=== PATIENT | female | born 1950 | race Caucasian/White ===

== ENCOUNTER → 2017-03-01 13:12 | Outpatient (CLI) | payer MEDICARE, BC ==
[2014-03-01 12:05] VITALS: BMI 27.4
[~2017-03-01 13:12] MED LIST: ACETAMINOPHEN500 M1 PO; ASPIRIN325 MG PO; ATIVAN1 MG PO; CARAFATE1 G PO; GLUCOTROL XL 1010 MG PO; LAMICTAL100 MG PO; LAMICTAL200 MG PO; LAMICTAL25 MG PO; LEVOTHROID150 MCG PO; LEVSIN/ANASP0.125 MG PO; LINZESS145 MCG PO; LISINOPRIL10 MG PO; METAMUCIL PACKE1 PKT PO; MINERAL OIL25 ML PO; MIRALAX17 GM PO; OXYBUTYNIN CHLOR5 MG; PEPCID20 MG PO; PLAVIX75 MG PO; PRAVACHOL20 MG PO; PRILOSEC20 MG PO; PRINIVIL20 MG PO; SEROQUEL XR300 MG PO; SEROQUEL200 MG PO; SYNTHROID125 MCG PO; SYNTHROID150 MCG PO; SYNTHROID50 MCG PO; TOPAMAX100 MG PO; TOPAMAX50 MG PO; VITAMIN B-12250 MC3 SL; ZYPREXA10 MG PO; ZYPREXA5 MG PO
== END | disposition home or self-care (01) ==
LOC: D.MAMMO 11:30
DX: Z12.31 Encounter for screening mammogram for malignant neoplasm of breast (principal)

== ENCOUNTER → 2018-03-07 20:15 | Outpatient (CLI) | payer MEDICARE, BC ==
[2014-03-01 12:05] VITALS: BMI 27.4
== END | disposition home or self-care (01) ==
LOC: D.MAMMO 14:30
DX: Z12.31 Encounter for screening mammogram for malignant neoplasm of breast (principal)

== ENCOUNTER → 2018-04-06 09:02 | Outpatient (CLI) | payer MEDICARE, BC ==
[2014-03-01 12:05] VITALS: BMI 27.4
--- NOTE | ~2018-04-06 | ST ---
PATIENT:RAPHAEL DUENAS MEDICAL RECORD: [id number] SEX: F LOCATION:[facility] ORDER #: ADMISSION DATE: 04/06/18 AGE OF PATIENT: 67 REFERRING PHYSICIAN: INTERPRETING PHYSICIAN: EBEN LAMAR MD DATE OF SERVICE: 04/06/2018 PROCEDURE: Nuclear Stress Test. INDICATION: Chest pain, angina, coronary artery disease, shortness of breath, hypertension, hyperlipidemia. DESCRIPTION OF PROCEDURE: The patient was exercised on standard Lexiscan protocol with 32 mCi of sestamibi injected at peak stress, 10 mCi were used previously for rest images. FINDINGS: Gated SPECT reveals preserved ejection fraction at 74% with good wall motioning and thickening and brightening throughout all segments. SPECT imaging: Sestamibi was used as myocardial perfusion agent. There is reversibility anteriorly, this includes the basal, mid apical anterior segments extending into the lateral segments as well. The degree of reversibility is mild to moderate. The amount of myocardial involved is moderate. OVERALL IMPRESSION: 1. This a normal nuclear stress test, reversible ischemia anterolaterally. 2. Gated SPECT reveals preserved ejection fraction greater than 70%. In this patient with a past history of coronary artery disease, current scan does suggest the presence of recurrent hemodynamically significant disease. Would proceed with coronary angiography as followup study. TRANSINT:[id number] Voice Confirmation ID: [id number] DOCUMENT ID: [id number] EBEN LAMAR MD at 1108 CC: THAO THORNTON [id number] DICTATION DATE: 04/06/18 1216 SECURITY PATROL DRIVER: 04/07/18 0047 DEP CLI 04/06/18 [id number] [place] [address]
== END | disposition home or self-care (01) ==
LOC: D.HCCARDIO 09:00
DX: I20.9 Angina pectoris, unspecified (principal)

== ENCOUNTER 2018-04-17 08:21 | Outpatient (CLI) | payer MEDICARE, BC ==
[~2018-04-17] VITALS: Ht 167.6 cm; Wt 81.8 kg
--- NOTE | ~2018-04-17 | HEMODYNAMI ---
PATIENT:RAPHAEL DUENAS MEDICAL RECORD: [id number] : 48 LOCATION:[facility] ADMISSION DATE: 04/17/18 Generatedon:04/17/201810:47 Patient name: RAPHAEL DUENAS Patient #: [id number] SSN: : 1950 Date of study: 04/17/2018 Page: Of Hemodynamic Procedure Report Patient Data Patient Demographics Procedure consent was obtained First Name: RAPHAEL Gender: Female Last Name: HENRIQUE : 1950 Middle Initial: WILD Age: 67 year(s) Patient #: [id number] Race: Unknown Additional ID: [id number] Contact details [address]: [address] [place] [address] State: [place] City: [facility] Zip code: [address] Admission Admission Data Admission Date: 04/17/2018 Admission Time: 8:21 Procedure Procedure Types Cath Procedure Diagnostic Procedure LHC LHC w/Coronaries Procedure Description Procedure Date Procedure Date: 04/17/2018 Procedure Start Time: 10:37 Procedure End Time: 10:45 Procedure Staff Name Function Jesús Krishnan MD Performing Physician Quincy Man RN Department Of Natural Resources Officer Estefania Lujan RT Monitor Urszula Parks RN Nurse Karyn Evans RT Scrub Procedure Data Cath Procedure Fluoroscopy Diagnostic fluoroscopy Total fluoroscopy Time: 2.5 time: 2.5 min min Diagnostic fluoroscopy Total fluoroscopy dose: 478 dose: 478 mGy mGy Contrast Material Contrast Material Type Amount (ml) Isovue 300 62 Entry Location Entry Primary Successful Side Size Upsize Upsize Entry Closure Chaudhry ccessful Closure Location (Fr) 1 (Fr) 2 (Fr) Remarks Device Remarks Radial Right 6 Fr Mechanical artery Short Compression Estimated blood loss: 5 ml Diagnostic catheters Device Type Used For End Catheter Placement DIAGNOSTIC Acton 110cm 5 Multi-vessel Fr catheter ([id number]) Angiography DIAGNOSTIC AR MOD 5Fr Right Coronary Catheter ([id number]) Angiography Procedure Complications No complications Procedure Medications Medication Administration Route Dosage 0.9% NaCl I.V. 100 ml/hr Oxygen etCO2 Nasal cannula 2 l/min Lidocaine 2% added to field 20 Heparin Flush Bag added to field 2 bags (1000units/500ml NS) Radial Cocktail added to field 1 syringe (Verapomil 2mg/Nitro 400mcg/Heparin 1500units) Versed I.V. 2 mg Fentanyl I.V. 100 mcg Versed I.V. 2 mg Hemodynamics Rest Heart Rate: 66 (bpm) Pressure Samples Time Site Value (mmHg) Purpose Heart Use Rate(bpm) 10:39 LV 115/7,4 Snapshot 65 Snapshots Pre Cath Intra NCS Post Cath Vital Signs Time Heart Resp SPO2 etCO2 NIBP (mmHg) Rhythm Pain Sedation Rate (ipm) (%) (mmHg) Status Level (bpm) 10:19:38 68 18 100 15 155/84(116) NSR 0 (11) 10(A) , No pain 10:24:09 62 17 100 20 149/72(126) NSR 0 (11) 10(A) , No pain 10:28:31 66 24 100 14 145/70(118) NSR 0 (11) 10(A) , No pain 10:32:55 67 16 97 22.8 114/69(88) NSR 0 (11) 10(A) , No pain 10:37:15 76 15 96 23.3 133/62(81) NSR 0 (11) 10(A) , No pain 10:41:33 79 12 98 29.7 104/57(77) NSR 0 (11) 9(A) , No pain 10:45:49 84 15 99 21 99/61(83) NSR 0 (11) 10(A) , No pain Medications Time Medication Route Dose Verified Delivered Reason Notes E ffectiveness by by 10:18:27 0.9% NaCl I.V. 100 Jesús Urszula used for ml/hr Ariella Parks forestry conservation worker 10:18:34 Oxygen etCO2 2 l/min Jesús Gutierreza used for Nasal Ariella Parks procedure cannula RN 10:18:41 Lidocaine 2% added 20ml Jesús Espinosa for local to vial Ariella Krishnan MD anesthetic field 10:18:48 Heparin Flush added 2 bags Jesús Espinosa used for Bag to Ariella Krishnan MD procedure (1000units/500ml field NS) 10:30:18 Radial Cocktail added 1 Jesús Urszula used for (Verapomil to syringe Ariella Parks procedure 2mg/Nitro field RN 400mcg/Heparin 1500units) 10:34:28 Versed I.V. 2 mg Jesús Deanyla for Ariella Parks sedation RN 10:34:39 Fentanyl I.V. 100 mcg Jesús Gutierreza for Ariella Parks sedation RN 10:39:36 Versed I.V. 2 mg Jesús Deanyla for Ariella Parks sedation wash test checker Log Time Note 10:07:16 Time tracking: Regular hours (M-F 7:00 - 5:00) 10:07:20 Plan of Care:Hemodynamics will remain stable., Cardiac rhythm will remain stable., Comfort level will be maintained., Respiratory function will remain adequate., Patient/ family verbilizes understanding of procedure., Procedure tolerated without complication., Recovers from procedure without complications.. 10:10:40 Quincy Man RN sent for patient. Start room use. 10:14:18 Patient received from Pre/Post Procedure Room to CCL 1 Alert and oriented. Tansferred to table in Supine position. 10:14:20 Warm blankets applied, and lauren hugger turned on for patient comfort. 10:14:20 Correct patient and procedure confirmed by team. 10:14:21 Signed procedure consent form obtained from patient. 10:14:23 ECG and BP/O2 sat monitors applied to patient. 10:14:24 Full Disclosure recording started 10:18:17 Vital chart was started 10:18:27 0.9% NaCl 100 ml/hr I.V. was administered by Urszula Parks RN; used for procedure; 10:18:34 Oxygen 2 l/min etCO2 Nasal cannula was administered by Urszula Parks RN; used for procedure; 10:18:41 Lidocaine 2% 20ml vial added to field was administered by Jesús Krishnan MD; for local anesthetic; 10:18:48 Heparin Flush Bag (1000units/500ml NS) 2 bags added to field was administered by Jesús Krishnan MD; used for procedure; 10:20:31 Baseline sample Acquired. 10:20:46 Rhythm: sinus rhythm 10:30:18 Radial Cocktail (Verapomil 2mg/Nitro 400mcg/Heparin 1500units) 1 syringe added to field was administered by Urszula Parks RN; used for procedure; 10:31:39 H&P Date Dictated: 04/17/2018 Within 30 days and on chart., H&P Addendum completed by physician on day of procedure. (MUST COMPLETE FOR ALL OUTPATIENTS). 10:31:40 Pre-procedure instructions explained to patient. 10:31:42 Pre-op teaching completed and patient verbalized understanding. 10:31:45 Family in patients room. 10:31:55 Patient NPO since Midnight. 10:31:56 Is the patient allergic to Iodine/contrast media? No. 10:31:58 Was the patient premedicated? No 10:31:59 Is patient on blood thinner?No 10:32:00 Patient diabetic? No. 10:32:03 Previous problem with sedation/anesthesia? No ? 10:32:05 Snore? Yes 10:32:06 Sleep apnea? Yes 10:32:07 Deviated septum? No 10:32:08 Opens mouth fully? Yes 10:32:09 Sticks out tongue? Yes 10:32:19 Airway obstruction? No ? 10:32:23 Dentures? Yes out 10:32:28 Pre procedure: right dorsailis pedis pulse 2+ Normal; easily identifiable; not easily obliterated 10:32:30 Pre procedure: left dorsailis pedis pulse 2+ Normal; easily identifiable; not easily obliterated 10:32:33 Patient pain scale 0/10 ?. 10:32:41 IV patent on arrival in left forearm with 0.9% NaCl at KVO. 10:32:43 Lab results completed and on chart. 10:32:51 Right Radial & Right Groin area was prepped with chlora-prep and draped in sterile fashion 10:32:51 Alarms reviewed by R. N. 10:32:52 Sharps counted by scrub and verified by R.N. 10:32:53 Physician arrived 10:32:53 --------ALL STOP TIME OUT------ 10:32:53 Final Timeout: patient, procedure, and site verified with staff and physician. All members of the team are in agreement. 10:32:55 Right Radial & Right Groin site verified by team. 10:32:58 Physical assessment completed. ASA score P 2 - A patient with mild systemic disease as per Jesús Krishnan MD. 10:33:02 Sedation plan: IV Moderate Sedation Medication:Versed, Fentanyl 10:34:28 Versed 2 mg I.V. was administered by Urszula Parks RN; for sedation; 10:34:39 Fentanyl 100 mcg I.V. was administered by Urszula Parks RN; for sedation; 10:37:16 Use device set Radial Dx or PCI 10:37:18 ACIST Syringe (00672) opened to sterile field. 10:37:18 Medline Cath Pack ([id number]) opened to sterile field. 10:37:18 Bag Decanter (2002S) opened to sterile field. 10:37:19 DIAGNOSTIC WIRE .035 260cm J wire (812042) opened to sterile field. 10:37:19 ACIST Hand Control (26970) opened to sterile field. 10:37:19 ACIST Manifold (80118) opened to sterile field. 10:37:20 Tegaderm 4 x 4 (1626W) opened to sterile field. 10:37:20 MBrace Wrist Support ([id number]) opened to sterile field. 10:37:21 SHEATH 6FR Slender (60-0383) opened to sterile field. 10:37:27 Procedure started. 10:37:31 Local anesthetic to right radial artery with Lidocaine 2% by Jesús Krishnan MD.INITIAL ACCESS ONLY 10:37:40 A 6 Fr Short sheath was inserted into the Right Radial artery 10:38:35 A DIAGNOSTIC Acton 110cm 5 Fr catheter ([id number]) was advanced over the wire and used for Multi-vessel Angiography. 10:38:44 Zero performed for pressure channel P1 10:38:48 Zero performed for pressure channel P1 10:38:53 Zero performed for pressure channel P1 10:38:59 Zero performed for pressure channel P1 10:39:11 LV hemodynamics recorded. 10:39:12 LV gram done using LUCERO 10:39:26 EF : 60 % 10:39:34 LCA angiography performed. 10:39:36 Versed 2 mg I.V. was administered by Urszula Parks RN; for sedation; 10:39:36 Injector settings: Ml/sec: 3, Volume: 6, 10:41:54 Zero performed for pressure channel P1 10:42:09 A DIAGNOSTIC AR MOD 5Fr Catheter ([id number]) was advanced over the wire and used for Right Coronary Angiography. 10:42:53 RCA angiography performed. 10:42:56 Injector settings: Ml/sec: 3, Volume: 6, 10:43:08 Catheter removed. 10:43:40 Sheath removed intact; hemostasis achieved with Mechanical Compression to the Right Radial artery. 10:43:42 Procedure ended.(Physican Out) 10:44:06 Fluoroscopy time 02.50 minutes. 10:44:23 Fluoroscopy dose: 478 mGy 10:44:23 Flurop Dose total: 478 10:44:27 Contrast amount:Isovue 300 62ml. 10:44:28 Sharps counted by scrub and verified by R.N. 10:44:31 TR band inflated with 11cc of air. 10:44:36 Insertion/operative site no bleeding no hematoma. 10:44:41 Post right radial artery:stable 10:44:42 Post Procedure Pulses reassessed and unchanged 10:44:45 Post procedure rhythm: unchanged. 10:44:47 Estimated blood loss: 5 ml 10:44:58 TR BAND Large ([id number]) opened to sterile field. 10:45:05 Post procedure instruction explained to patient.Patient verbalizes understanding. 10:45:05 Patient needs reinforcement of post procedure teaching. 10:45:13 Procedure and supply charges have been captured, reviewed, submitted and are correct. 10:45:17 Procedure Complication : No complications 10:45:20 Vital chart was stopped 10:45:20 See physician's report for complete and final results. 10:45:23 Report given to Pre/Post Procedure Room. 10:45:25 Patient transfered to Pre/Post Procedure Room with Stretcher. 10:45:28 Procedure ended. 10:45:28 Full Disclosure recording stopped 10:45:38 End room use (Document Last) Device Usage Item Name Manufacture Quantity Catalog Hospital Part Current Minimal Lot# / Number Charge Number Stock Stock Serial# Code ACIST Acist 1 09130 894396 936008 370984 20 Syringe Cascade Prodrug (25488) Clowdy Inc Medline Medline 1 [id number] 880222 97495 203165 5 Cath Pack ([id number]) Bag Microtek 1 326697 11464 565795 5 Decanter Medical Inc. () DIAGNOSTIC [place] 1 480113 396654 036479 343113 30 WIRE .035 260cm J wire (177917) ACIST Hand Acist 1 71162 878519 894683 824773 5 Control Medical (24597) Systems Inc ACIST Acist 1 75792 276402 994341 563403 5 Manifold Medical (65215) Systems Inc Tegaderm 4 3M 1 1626W 801756 450830 121150 5 x 4 (1626W) MBrace Advanced 1 140-0250-00 568798 78360 959749 5 Wrist Vascular Support Dynamics ([id number]) SHEATH 6FR Terumo 1 [id number] 019826 053284 792594 5 Slender (80-1060) DIAGNOSTIC Terumo 1 40-3363 214561 139251 666505 5 Acton 110cm 5 Fr catheter (339850) DIAGNOSTIC Cardinal 1 [id number] 393844 249886 801128 15 AR MOD 5Fr Health Catheter (078314H) TR BAND Terumo 1 [id number] 402944 520817 351449 40 Large ([id number]) Signature Audit [place] Stage Time Signature Unsigned Intra-Procedure 04/17/2018 Estefania Lujan 10:47:06 AM RT(R) Signatures Monitor : Estefania Lujan RT Signature : Date : Time : [address] [place] [address]
--- NOTE | ~2018-04-17 | OP ---
PATIENT NAME: RAPHAEL DUENAS MEDICAL RECORD: [id number] :48 LOCATION:[facility] ADMISSION DATE: SURGEON: EBEN LAMAR MD DATE OF OPERATION: 04/17/2018 PROCEDURES: 1. Left heart catheterization. 2. Selective coronary angiography. 3. Left ventriculogram. INDICATION: Chest pain compatible with angina. PROCEDURE IN DETAIL: After informed consent was obtained and after a detailed description of risks, benefits as well as alternative therapies, the patient elected to proceed with angiogram and heart catheterization. The right radial area was prepped and draped in normal sterile fashion. Right radial artery was cannulated via modified Seldinger technique with placement of 5-Maldivian sheath. All catheters exchanged through this sheath. FINDINGS: The left ventriculogram was performed in standard 30-degree LUCERO view, reveals good cardiac wall motion throughout all segments. Overall ejection fraction estimated 60%. SELECTIVE CORONARY ANGIOGRAPHY: Left main, left anterior descending, left circumflex, right coronary artery are all smooth-walled vessels with no angiographic evidence of coronary artery disease. OVERALL IMPRESSION: 1. No angiographic evidence of coronary artery disease. 2. Normal left heart pressures. 3. Normal left ventricular systolic function. Chest pain is noncardiac in etiology. No further cardiac workup needs to be ascertained. TRANSINT:[id number] Voice Confirmation ID: [id number] DOCUMENT ID: [id number] EBEN LAMAR MD at 1324 CC: [id number] DICTATION DATE: 04/17/18 1045 SOUND ASSISTANT: 04/17/18 1202 DEP CLI 04/17/18 [place] [address]
[2018-04-17] MEDS ORDERED: BUPROPION HCL75 MG PO (08:48)
[2018-04-17] MEDS ORDERED: ALENDRONATE SOD70 MG PO (08:48)
[2018-04-17 08:49] VITALS: BP 154/68; Ht 167.6 cm; Wt 81.8 kg
[2018-04-17] MEDS ORDERED: FLUTICASONE PRO16 GM NASAL (08:49)
[2018-04-17] MEDS ORDERED: HALDOL5 MG PO (08:50)
[2018-04-17] MEDS ORDERED: LISINOPRIL10 MG PO (08:51)
[2018-04-17] MEDS ORDERED: TRAZODONE HCL100 MG PO (08:53)
[2018-04-17 09:09] LABS: BASOPHILS 0.2 % (0-2); EOSINOPHILS 1.6 % (0-7); HEMATOCRIT 39.9 % (36.0-48.0); HEMOGLOBIN 13.3 g/dL (12-16); IMMATURE GRANULOCYTES 0.2 % (0-5); LYMPHOCYTES 34.8 % (15-50); MCH 30.4 pg (26.0-34.0); MCHC 33.3 g/dL (31.0-37.0); MCV 91.1 fL (80.0-100.0); MEAN PLATELET VOLUME 10.8 fL (7.4-10.4); MONOCYTES 10.5 % (2-11); NEUTROPHILS 52.7 % (40-80); PLATELET COUNT 219 10x3/uL (130-400); RBC 4.38 10x6/uL (4.00-5.40); RDW 14.7 % (11.5-14.5); WBC 6.3 10x3/uL (4.8-10.8)
[2018-04-17 09:27] LABS: CALC OSMOLALITY 283 mosm/kg (275-300); CALCIUM 9.4 mg/dL (8.5-10.1); CARBON DIOXIDE 23.3 mmol/L (21.0-32.0); CHLORIDE - SERUM 107 mmol/L (98-107); CREATININE - SERUM 0.8 mg/dL (0.6-1.3); GLUCOSE 90 mg/dL (74-106); POTASSIUM - SERUM 3.3 mmol/L (3.5-5.1); SODIUM 143 mmol/L (136-145); UREA NITROGEN 9 mg/dL (7-18); eGFR NON AFRICAN AMERICAN 75 mL/min (90-120)
== END 2018-04-17 12:45 | disposition home or self-care (01) ==
LOC: D.CATH 08:21
PROVIDERS: Internal Medicine Interventional Cardiology
DX: R07.89 Other chest pain (principal); Z01.812 Encounter for preprocedural laboratory examination

== ENCOUNTER 2018-04-19 12:26 | Inpatient (IN) | payer MEDICARE, BC ==
[~2018-04-19] VITALS: Ht 167.6 cm; Wt 81.8 kg
[~2018-04-19 12:26] MED LIST changes: +ALENDRONATE SOD70 MG PO; +BUPROPION HCL75 MG PO; +FLUTICASONE PRO16 GM NASAL; +HALDOL5 MG PO; +TRAZODONE HCL100 MG PO
--- NOTE | 2018-04-19 12:49 | NUR ---
PT REPORTS THAT SHE IS BIPOLAR AND THE HOLIDAYS TRIGGERS THESE FEELINGS
--- NOTE | 2018-04-19 13:01 | NUR ---
PT UP OUT OF BED WALKING THE CATALAN AT TIMES. PT THRASHING ABOUT ON THE STRETCHER WITH SON AT BEDSIDE. PT ATTEMPTING TO GET OUT OF BED MULTIPLE TIMES AND DTR IS HERE NOW CONSOLING PT
--- NOTE | 2018-04-19 13:33 | NUR ---
PT RESTING QUIETLY AT THIS TIME. FAMILY AT BEDSIDE
[2018-04-19 13:43] LABS: BASOPHILS 0.2 % (0-2); EOSINOPHILS 0.7 % (0-7); HEMATOCRIT 39.3 % (36.0-48.0); IMMATURE GRANULOCYTES 0.2 % (0-5); LYMPHOCYTES 33.8 % (15-50); MCHC 33.1 g/dL (31.0-37.0); MCV 90.8 fL (80.0-100.0); MEAN PLATELET VOLUME 10.7 fL (7.4-10.4); MONOCYTES 7.7 % (2-11); NEUTROPHILS 57.4 % (40-80); PLATELET COUNT 216 10x3/uL (130-400); RBC 4.33 10x6/uL (4.00-5.40); RDW 14.6 % (11.5-14.5)
--- NOTE | 2018-04-19 13:47 | NUR ---
PT RESTING QUIETLY AT THIS TIME. FAMILY AT BEDSIDE
--- NOTE | 2018-04-19 13:48 | NUR ---
[facility] AND WAS TAKNE OFF OF HALDOL APPROX 1 MONTH AGO. FAMILY REPORTS THAT PT IS NOT SLEEPING OR EATING. FAMILY REPORTS THAT SHE HAD BEEN DOING WELL FOR THE PAST 2 YEARS.
--- NOTE | 2018-04-19 13:52 | NUR ---
LAB CALLED AND PT HAS A LACTIC ACID OF 2.8
[2018-04-19 13:55] LABS: ALBUMIN 3.8 g/dL (3.4-5.0); ALKALINE PHOSPHATASE 62 U/L (46-116); ALT (SGPT) 21 U/L (10-68); BILIRUBIN - TOTAL 0.37 mg/dL (0.2-1.3); CALC OSMOLALITY 277 mosm/kg (275-300); CALCIUM 9.3 mg/dL (8.5-10.1); CARBON DIOXIDE 20.9 mmol/L (21.0-32.0); CHLORIDE - SERUM 104 mmol/L (98-107); CREATINE KINASE 76 UL (21-215); CREATININE - SERUM 0.9 mg/dL (0.6-1.3); GLUCOSE 105 mg/dL (74-106); LIPASE 205 U/L (73-393); PROTEIN - SERUM 7.3 g/dL (6.4-8.2); SODIUM 140 mmol/L (136-145); THYROID STIMULATING HORMONE 7.02 uIU/mL (0.36-3.74); TROPONIN-I < 0.017 ng/mL (0.000-0.060); UREA NITROGEN 11 mg/dL (7-18); eGFR NON AFRICAN AMERICAN 66 mL/min (90-120)
[2018-04-19 13:59] LABS: POTASSIUM - SERUM 2.9 mmol/L (3.5-5.1)
[2018-04-19 14:01] LABS: APPEARANCE CLEAR (CLEAR); BILIRUBIN NEGATIVE (NEGATIVE); COLOR YELLOW (YELLOW); GLUCOSE NEGATIVE (NEGATIVE); KETONE NEGATIVE (NEGATIVE); NITRITE NEGATIVE (NEGATIVE); PH 7.5 (5.0-6.0); PROTEIN NEGATIVE (NEGATIVE); UROBILINOGEN NORMAL (NORMAL)
--- NOTE | 2018-04-19 14:02 | NUR ---
PTS POTASSIUM IS 2.9
[2018-04-19 14:10] LABS: UDS - AMPHET NEGATIVE QUAL (NEGATIVE); UDS - BARB NEGATIVE QUAL (NEGATIVE); UDS - BENZO POSITIVE QUAL (NEGATIVE); UDS - COCAINE NEGATIVE QUAL (NEGATIVE); UDS - OPIATE NEGATIVE QUAL (NEGATIVE); UDS - PCP NEGATIVE QUAL (NEGATIVE); UDS - THC NEGATIVE QUAL (NEGATIVE)
--- NOTE | 2018-04-19 14:31 | NUR ---
AT APPROX 1315 PT GOT OUT OF BED AND WAS DOWN THE HALLWAY TRYING TO LEAVE THE DEPARTMENT. WITH ASSISTANCE OF 2 PEOPLE PT PLACED BACK ON THE STRETCHER WITH NEW ORDERS GIVEN. PT NOT STRIKING AT STAFF BUT WAS TRYING TO SIT IN THE FLOOR AND NOT COOPERATING.
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
--- NOTE | 2018-04-19 15:38 | NUR ---
PT HAS BEEN ACCEPTED IN RETIREMENT
[2018-04-19 16:23] VITALS: BP 153/90; BMI 29.1
[2018-04-19 16:28] LABS: CHOL - HDL RATIO 2.1 ratio (2.3-4.1); LDL-HDL RATIO 0.9 ratio (1.5-3.5); THYROID STIMULATING HORMONE 7.12 uIU/mL (0.36-3.74)
[2018-04-19] MEDS ORDERED: TOPAMAX200 MG PO (17:29)
[2018-04-19] MEDS ORDERED: ATIVAN0.5 MG PO (17:30)
[2018-04-19 20:00] VITALS: BP 133/98
--- NOTE | 2018-04-20 02:20 | NUR ---
B) Patient is alert and oriented to person and place, calm and cooperative, no behaviors noted this shift, I) Administered scheduled medications as ordered R) Mediation compliant, sleeping now quietly in her bed, P) Continue plan of care.
[2018-04-20 08:19] LABS: FOLATE (FOLIC ACID) - SERUM 5.9 ng/mL (>3.0)
--- NOTE | 2018-04-20 09:10 | NUR ---
B) The patient is awake and alert, she did tell the other nurse that she is feeling itchy. She told me she is having a bipolar episode. She does not look anxious. She says she is feeling anxious. She ambulates independently. I) Provide her ativan 0.5 mg PO. Provide prescribed meds. R) The patient is compliant with meds. She is sitting away from most of the other patients. P) Continue POC.
[2018-04-20 09:27] VITALS: BMI 29.0
[2018-04-20 16:25] VITALS: Ht 167.6 cm; Wt 81.8 kg
[2018-04-20 19:52] VITALS: BP 136/70
--- NOTE | 2018-04-21 02:59 | NUR ---
B) Patient is alert and orineted to person, place and time, calm and cooperative, I) Administered scheduled medications as ordered, monitored for safety, assisted with needs and wants, R) Mediation coampliant, pleasant and friendly toward sataff, P) Continue plan of care.
--- NOTE | 2018-04-21 08:21 | NUR ---
B) The patient is calm and compliant, her mood is depressed, but she is reactive at times. She is oriented x 3. She ambulates independently. At this time Silviano called to the administrative assistant front desk and stated this patient put herself in the floor and she rolled all around and crawled to room 1136, she says this is a "Bipolar episode". I) Will provide her an IM Ativan 0.5 mg and Haldol 2 mg. R) Will monitor behavior and let Dr. Murillo be aware. P) Continue POC.
--- NOTE | 2018-04-21 08:32 | NUR ---
The patient stopped screaming, will hold off on the prn Ativan and Haldol. Will monitor her behavior.
--- NOTE | 2018-04-21 08:46 | PSY ---
PATIENT NAME:RAPHAEL DUENAS MEDICAL RECORD: [id number] : 48 LOCATION:[facility] ADMISSION DATE: 04/19/18 ACCOUNT: [id number] PSYCHIATRIC EVALUATION DATE OF EVALUATION: 04/20/18 IDENTIFYING DATA: The patient is 67 years old and she is admitted to the hospital on a voluntary basis secondary to agitation. CHIEF COMPLAINT: "They changed my medicine." HISTORY OF PRESENT ILLNESS: The patient has an established diagnosis of bipolar disorder. She was brought to the Emergency Room by her family because of erratic behavior. The patient's family reports increased emotional lability and agitation. She becomes quite active, she will begin screaming uncontrollably or she will be seen riding back and forth in her chair. She says that she is going to kill someone if not restrained. The patient denies this and says she has just been anxious about the holidays. The patient does freely admit that she feels she is about to lose control of herself. She indicates she has an increase in goal-directed activities, rapid intrusive thoughts and inability to sleep and feels highly agitated. She relates this to being taken off her Haldol by her outpatient psychiatrist. PAST MEDICAL HISTORY: Significant for diabetes, hypothyroidism, hypertension, gastroesophageal reflux disease, and a hysterectomy. PAST PSYCHIATRIC HISTORY: Significant for multiple hospitalizations dating back several decades. She has a long established diagnosis of bipolar disorder. FAMILY HISTORY: Noncontributory. ALLERGIES: AMOXICILLIN. CURRENT MEDICATIONS: Include Glucotrol, Prilosec, Fosamax, Wellbutrin, lisinopril, trazodone, Ditropan, Lamictal, Pravachol, Synthroid, Topamax, and Ativan. SOCIAL HISTORY: The patient is . She has 2 sons and a daughter. One of her sons is a 48-year-old, disabled from a stroke and lives with them and requires constant care from both the and . Apparently, he is so debilitated from the stroke, they actually have to feed this man. She is a former cigarette smoker and has never used recreational drugs. MENTAL STATUS EXAMINATION: The patient is awake, alert and oriented to person, place and somewhat to time and situation. Her mood is anxious. Her affect is constricted. Thought processes are disorganized. Memory, concentration, and abstraction abilities are at least moderately impaired. She denies any intent to harm herself or others. She denies psychotic symptoms. ASSETS: Supportive family members. LIABILITIES: Limited insight. DIAGNOSTIC IMPRESSION: AXIS I: Bipolar disorder, manic. AXIS II: None. AXIS III: Diabetes, hypertension, and hypothyroidism. AXIS IV: Moderate. AXIS V: Global assessment of functioning is 40. PLAN: At this time, the patient is admitted to the hospital secondary to agitated and threatening behavior associated with a chronic mental illness. She will be started on antipsychotic and mood stabilizing medications. Her long-term prognosis is guarded. TRANSINT:[id number] Voice Confirmation ID: [id number] DOCUMENT ID: [id number] ANTWAN ARZATE MD at 0846 CC: [id number] DICTATION DATE: 04/20/18 1350 LAND ACQUISITION MANAGER: 04/20/18 1452 ADM IN [facility] [address] [place] [address]
--- NOTE | 2018-04-21 09:00 | NUR ---
This nurse sat by the patient and spoke to her about getting her medications and that she needed to try to calm down as she will be receiving her medications soon. She is anxious and getting herself worked up, her bp and heart rate is elevated because she is worked up.
[2018-04-21 09:51] VITALS: BP 172/92
[2018-04-21 10:10] VITALS: BP 172/92
--- NOTE | 2018-04-21 10:30 | NUR ---
The patient again began screaming and hollering. Saying "Please don't make me go through this" over and over. Staff allowing her to self calm.
[2018-04-21 19:00] VITALS: BP 160/86
--- NOTE | 2018-04-22 04:14 | NUR ---
B) patient is alert and oriented to person and place, calm and cooperative this shift I) Administered scheduled mediations as ordered, monitored for safety R) mediation compliant, no behaviors noted this shift P) Continue plan of care.
[2018-04-22 07:00] VITALS: BP 154/96
--- NOTE | 2018-04-22 08:00 | NUR ---
B) pt is alert and oriented to person and place. pt is calm and cooperative with assessment. I) provide prescribed meds R) med compliant P) cpoc
--- NOTE | 2018-04-22 11:30 | PN ---
PATIENT:RAPHAEL DUENAS MEDICAL RECORD: [id number] LOCATION:[facility] ADMISSION DATE: 04/19/18 PROGRESS NOTE DATE OF SERVICE: 04/21/2018 SUBJECTIVE: The patient's case was discussed with staff. She has no new complaint. OBJECTIVE: The patient was behaving quite bizarrely this morning. She was crawling around on the floor and making nonsensical statements. She remembers doing this when asked about it. She is calling it an "episode." She is currently reporting that she feels better. She has only had one dose of Haldol that was discontinued, so I am not particularly concerned about this, but I am going to continue current medications and we will treat her with a low dose of Klonopin at bedtime. TRANSINT:[id number] Voice Confirmation ID: [id number] DOCUMENT ID: [id number] ANTWAN ARZATE MD at 1130 CC: [id number] DICTATION DATE: 04/21/18 1014 LIFT MANAGER: 04/21/18 1216 ADM IN [facility] [address] [id number]
[2018-04-22 20:12] VITALS: BP 160/94
--- NOTE | 2018-04-22 22:17 | NUR ---
PATIENT IS QUIET AND SOMEWHAT GAURDED, NOT VERY TRUSTING OF OTHERS, GETS ANXIOUS EASILY. TAKES MEDS. NO ADVERSE REACTION NOTED. WILL FOLLOW POC
[2018-04-23 07:00] VITALS: BP 129/84
--- NOTE | 2018-04-23 07:30 | NUR ---
B) PT IS ALERT AND ORIENTED. PT IS GUARDED AT TIMES. PT REPORTS ITCHY IS SIGN OF BIPOLAR EPISODE. REALITY ORIENTED NEEDED. PT BECOMES ANXIOUS EASILY. CALM AND COOPERATIVW WITH ASSESSMENT. I) PROVIDE PRESCRIBED MEDS R) MED COMPLIANT P) CPOC
--- NOTE | 2018-04-23 09:41 | PN ---
PATIENT:RAPHAEL DUENAS MEDICAL RECORD: [id number] LOCATION:[facility] ADMISSION DATE: 04/19/18 PROGRESS NOTE DATE OF SERVICE: 04/22/2018 SUBJECTIVE: The patient's case was discussed with staff. She has no new complaint. OBJECTIVE: The patient denies intent to harm herself or others. She is tolerating her medications well. She did have an episode of bizarre behavior where she said she was starting to itch and then briefly lost control of her behavior. She now says that she is calmer, but she is in agreement with trying a low dose of Depakote to see if that helps with some of her mood lability. TRANSINT:[id number] Voice Confirmation ID: [id number] DOCUMENT ID: [id number] ANTWAN ARZATE MD at 0941 CC: [id number] DICTATION DATE: 04/22/18 1147 SUPERVISOR BONDING: 04/22/18 1552 ADM IN [id number] [place] [address]
--- NOTE | 2018-04-23 13:12 | NUR ---
Nutrition follow-up: Diet: ADA PO intake 50-75% of meals Labs reviewed +BM RDN following.
--- NOTE | 2018-04-23 21:31 | NUR ---
PATIENT IS QUIET AND KEEPS TO HERSELF, SHE IS NEEDY AND ATTENTION SEEKING AT TIMES. COMPLIANT WITH MEDS. NO ADVERSE REACTION NOTED. WILL FOLLOW POC
[2018-04-23 21:59] VITALS: BP 140/70
--- NOTE | 2018-04-24 09:43 | PN ---
PATIENT:RAPHAEL DUENAS MEDICAL RECORD: [id number] LOCATION:[facility] ADMISSION DATE: 04/19/18 PROGRESS NOTE DATE OF SERVICE: 04/23/2018 SUBJECTIVE: The patient's case was discussed with staff. She has no new complaint. OBJECTIVE: The patient is in good behavioral control with limited insight about her condition. She tolerates her medicines well. ASSESSMENT: No change in diagnoses. PLAN: Brief supportive and educational interventions were made. I anticipate the patient could be transitioned out of the hospital soon. TRANSINT:[id number] Voice Confirmation ID: [id number] DOCUMENT ID: [id number] ANTWAN ARZATE MD at 0943 CC: [id number] DICTATION DATE: 04/23/18 1038 AGRICULTURAL PRODUCE WASHER: 04/23/18 1105 ADM IN [address] [place] [address]
--- NOTE | 2018-04-24 10:00 | NUR ---
RECEIVED PATIENT IN DINING ROOM FOR B'FAST, ALERT, CALM, COOPERATIVE. NO CRAWLING ON THE FLOOR NOTED THUS FAR THIS SHIFT. MEDS ADMIN PER ORDERS WITH COMPLETE MED COMPLIANCE NOTED. COOPERATIVE WITH GROUP ACTIVITY AND STAFF REQUESTS. CONT POC INCLUDING MEDICATIONS AND GROUP THERAPY.
[2018-04-24 21:00] VITALS: BP 142/80
--- NOTE | 2018-04-24 22:59 | NUR ---
B) Patient is alert and oriented to person, place and time, calm and cooperative I) Administered scheduled medications as ordered R) Mediation compliant, pleasant and friendly toward staff, P) Continue plan of care.
--- NOTE | 2018-04-25 09:30 | NUR ---
RECEIVED PATIENT IN DINING ROOM FOR B'FAST, ALERT, CALM, COOPERATIVE, NO ADVERSE BEHAVIORS NOTED. MEDS ADMIN PER ORDERS WITH COMPLETE MED COMPLIANCE NOTED. NO DIFFICULTY SWALLOWING MEDS WHOLE. COOPERATIVE WITH GROUP ACTIVITIES AND STAFF REQUESTS. CONT POC INCLUDING MEDS AND GROUP THERAPY DIRECTED.
--- NOTE | 2018-04-25 15:07 | PN ---
PATIENT:RAPHAEL DUENAS MEDICAL RECORD: [id number] LOCATION:[facility] ADMISSION DATE: 04/19/18 PROGRESS NOTE DATE OF SERVICE: 04/24/2018 SUBJECTIVE: The patient's case was discussed with staff. She has no new complaint. OBJECTIVE: The patient is in good behavioral control with limited insight about her condition. She is tolerating her medicines well. She has had no further outbursts today. ASSESSMENT: No change in diagnoses. PLAN: I am going to check a Depakote level and we will anticipate that Leisa can be transitioned out of the hospital soon if this level of improvement continues. TRANSINT:[id number] Voice Confirmation ID: [id number] DOCUMENT ID: [id number] ANTWAN ARZATE MD at 1507 CC: [id number] DICTATION DATE: 04/24/18 1005 OCCUPATIONAL HEALTH RN: 04/24/18 1021 ADM IN [facility] [address] [place] [address]
[2018-04-25 20:23] VITALS: BP 124/70
--- NOTE | 2018-04-26 02:54 | NUR ---
B) Patient is alert and oriented to person, place and time, calm and cooperative. I) Administered scheduled medications as ordered, R) mediation compliant, pleasant and friendly P) Continue plan of care.
--- NOTE | 2018-04-26 10:00 | NUR ---
RECEIVED PATIENT IN DINING ROOM FOR B'FAST, ALERT, CALM, COOPERATIVE, APPETITE GOOD, FEEDS SELF WITHOUT DIFFICULTY. NO ADVERSE BEHAVIORS AT THIS TIME. MEDS ADMIN PER ORDERS WITH COMPLETE MED COMPLIANCE NOTED. NO S/S ADVERSE REACTION TO MEDS. COOPERATIVE DURING GROUP THERAPY. CONT POC INCLUDING MEDS AND GROUP THERAPY DIRECTED.
[2018-04-26 10:19] VITALS: BP 146/75
--- NOTE | 2018-04-26 14:21 | PN ---
PATIENT:RAPHAEL DUENAS MEDICAL RECORD: [id number] LOCATION:[facility] ADMISSION DATE: 04/19/18 PROGRESS NOTE DATE OF SERVICE: 04/25/2018 SUBJECTIVE: The patient's case was discussed with staff. She has no new complaint. OBJECTIVE: The patient is in good behavioral control with limited insight about her condition. She is tolerating her medicines well. ASSESSMENT: No change in diagnoses. PLAN: The patient will be maintained on current medications, which I have reviewed. I think her condition has improved and she is likely to be transitioned out of the hospital tomorrow or perhaps the next day. TRANSINT:[id number] Voice Confirmation ID: [id number] DOCUMENT ID: [id number] ANTWAN ARZATE MD at 1421 CC: [id number] DICTATION DATE: 04/25/18 1544 INDEPENDENT INSURANCE ADJUSTER: 04/25/18 1702 ADM IN [id number] [place] [address]
[2018-04-26 20:05] VITALS: BP 128/73
--- NOTE | 2018-04-26 21:07 | NUR ---
RECEIVED IN DAYROOM. SITTING IN A CHAIR WITH PEERS AT HER SIDE. CALM AND COOPERATIVE WITH CARE AND ASSESSMENT. NO SIGNS OF AGGRESSION. REDIRECT AND REORIENT NEEDED. CONTINUES TO SIT QUIETLY. CONTINUE PLAN OF CARE
[2018-04-27 08:47] VITALS: BP 161/85
--- NOTE | 2018-04-27 11:03 | NUR ---
B) The patient is awake, alert, orieted x3, she is pleasant. She says she is feeling better. She ambulates independently. I) Provide prescribed meds. R) The patient is compliant with meds and unit milieu. This am she has not shown herself to have any abnormal behavior. P) Continue POC.
--- NOTE | 2018-04-27 15:29 | PN ---
PATIENT:RAPHAEL DUENAS MEDICAL RECORD: [id number] LOCATION:[facility] ADMISSION DATE: 04/19/18 PROGRESS NOTE DATE OF SERVICE: 04/26/2018 SUBJECTIVE: The patient's case was discussed with staff. She has no new complaint. OBJECTIVE: The patient denies intent to harm herself or others. She generally tolerates her medicines well. Eye contact is fair. ASSESSMENT: No change in diagnoses. PLAN: Current medicines and therapies have been reviewed and will be maintained. Long-term prognosis is guarded. TRANSINT:[id number] Voice Confirmation ID: [id number] DOCUMENT ID: [id number] ANTWAN ARZATE MD at 1529 CC: [id number] DICTATION DATE: 04/26/18 1449 WAREHOUSE CHECKER: 04/26/18 1458 ADM IN [facility] [address] [place] [address]
[2018-04-27 19:46] VITALS: BP 119/70
--- NOTE | 2018-04-27 23:40 | NUR ---
RECEIVED IN PATIENT ROOM. RESTING IN BED WITH EYES OPEN. CALM AND COOPERATIVE WITH CARE AND ASSESSMENT. EXPRESSED HER HAPPINESS ABOUT DISCHARGING TOMORROW. REDIRECT AND REORIENT NEEDED. RESTING IN BED WITH EYES CLOSED AT THIS TIME. CONTINUE PLAN OF CARE.
[2018-04-28 08:00] VITALS: BP 126/68
--- NOTE | 2018-04-28 10:26 | NUR ---
B) The patient is awake and alert this am, she is pleased to know she is going home today. Her family will pick her up. She ambulates well, she has not shown any bizarre behavioes today, she is not S.I. or H. I., She will continue her same medications she was on while inpatient. I) Provide d/c instructions. R) The patient is compliant with medications and unit milieu. Spoke to the patient's daughter Kavya and she says 1 pm today for a picker feeder is a good time for the family. The patient is packed and ready to go, will fax the MAR and D/C summary to Dr. Abreu. P) Continue D/C plan.
[2018-04-28] MEDS ORDERED: FEXOFENADINE H180 MG PO (11:18)
[2018-04-28] MEDS ORDERED: TRAZODONE HCL100 MG PO (11:19)
[2018-04-28] MEDS ORDERED: COREG CR10 MG PO (11:19)
[2018-04-28] MEDS ORDERED: ACETAMINOPHEN325 MG PO (11:20)
[2018-04-28] MEDS ORDERED: DEPAKOTE500 MG PO (11:20)
[2018-04-28] MEDS ORDERED: LINZESS145 MCG PO (11:21)
[2018-04-28] MEDS ORDERED: PROTONIX40 MG PO (11:21)
[2018-04-28] MEDS ORDERED: CARAFATE1 G PO (11:21)
[2018-04-28] MEDS ORDERED: SYNTHROID25 MCG PO (11:22)
[2018-04-28] MEDS ORDERED: SYNTHROID112 MCG PO (11:22)
[2018-04-28] MEDS ORDERED: BENADRYL 2% CRE30 GM TOPICAL (11:23)
[2018-04-28] MEDS ORDERED: Ditropan XL PO (11:23)
[2018-04-28] MEDS ORDERED: VITAMIN D31000 UNI2 PO (11:23)
[2018-04-28] MEDS ORDERED: VITAMIN B-121000 MCG PO (11:24)
--- NOTE | 2018-04-28 12:50 | NUR ---
The patient's son is here to take the patient home. The patient is assisted off of the unit by staff. Did go over medications with the patients son and did explain that she will need an appointment with Dr. Abreu within three weeks. Also let them know that Dr. Murillo does not follow a patient outside of the hospital.
--- NOTE | 2018-04-28 13:46 | PN ---
PATIENT:RAPHAEL DUENAS MEDICAL RECORD: [id number] LOCATION:[facility] ADMISSION DATE: 04/19/18 PROGRESS NOTE DATE OF SERVICE: 04/27/2018 SUBJECTIVE: The patient's case was discussed with staff. She has no new complaint. OBJECTIVE: The patient has a therapeutic Depakote level of 68. She is otherwise tolerating her medicines well. ASSESSMENT: No change in diagnoses. PLAN: Supportive and educational interventions were made. Long-term prognosis is guarded. This level of improvement continues, I anticipate she can be transitioned out of the hospital soon. TRANSINT:[id number] Voice Confirmation ID: [id number] DOCUMENT ID: [id number] ANTWAN ARZATE MD at 1346 CC: [id number] DICTATION DATE: 04/27/18 1554 FIBER OPTIC ASSEMBLER: 04/27/18 2355 DIS IN 04/28/18 [facility] [address] [place] [address]
--- NOTE | 2018-05-01 10:58 | DS ---
PATIENT:RAPHAEL DUENAS :48 MEDICAL RECORD: [id number] DISCHARGE SUMMARY ADMISSION DATE: 04/19/18 DISCHARGE DATE: 04/28/18 IDENTIFYING DATA: The patient is 67 years old and she was admitted to the hospital on a voluntary basis because of agitation. The patient has an established diagnosis of bipolar disorder and was brought to the Emergency Room because of erratic behavior. Apparently, she had been taking Haldol for a long time and her outpatient psychiatrist felt it was not appropriate and discontinued it. The decision was in retrospect a mistake at that time with the information she had. I do not think it was a bad decision. Given the long-term neurologic side effects of Haldol and the patient's longstanding stability while taking a therapeutic trial without it was not a bad decision and probably is something I would have done as well. At any rate, it was a mistake and the patient became disorganized, anxious, and out of control. She had become manic with an increase in goal-directed activities, rapid intrusive thoughts, and inability to sleep. She had an internal and subjective feeling of agitation. HOSPITAL COURSE: The patient was admitted to the hospital and evaluated from both a medical, psychological, and social standpoint. She was placed back on Haldol and it immediately helped with these symptoms. Interestingly, through the course of her treatment for this condition, she has never been tried on lithium or Depakote. I am not sure that is entirely correct, but that is the history the patient relates to me. I did start the patient on Depakote as a therapeutic trial and she did show improvement while taking it. She also had a therapeutic blood level prior to discharge. She was subsequently discharged to home. DISCHARGE DIAGNOSES: AXIS I: Bipolar disorder, manic. AXIS II: None. AXIS III: Diabetes, hypertension, and hypothyroidism. AXIS IV: Moderate. AXIS V: Global assessment of functioning is 45. PLAN: At the time of discharge, the patient was not acutely or directly dangerous to herself or others. She was tolerating her medications well. Her long-term prognosis is guarded. Brief supportive and educational interventions were provided. TRANSINT:[id number] Voice Confirmation ID: [id number] DOCUMENT ID: [id number] ANTWAN ARZATE MD at 1053 CC: [id number] DICTATION DATE: 04/30/18 1334 REGISTERED DENTAL HYGIENIST: 05/01/18 0620 DIS IN 04/28/18 [facility] [address] [id number]
== END 2018-04-28 12:53 | disposition home or self-care (01) | DRG 885 ==
LOC: D.ER 12:26 → D.PSYCH 15:45
PROVIDERS: Family Medicine; ADMIT Psychiatry & Neurology Psychiatry
DX: F31.10 Bipolar disorder, current episode manic without psychotic features, unspecified (principal); E11.9 Type 2 diabetes mellitus without complications; I10 Essential (primary) hypertension; E03.9 Hypothyroidism, unspecified; E78.5 Hyperlipidemia, unspecified; K21.9 Gastro-esophageal reflux disease without esophagitis; J30.9 Allergic rhinitis, unspecified; E53.8 Deficiency of other specified B group vitamins; E55.9 Vitamin D deficiency, unspecified; M47.9 Spondylosis, unspecified; K59.00 Constipation, unspecified; N32.81 Overactive bladder

== ENCOUNTER 2018-05-18 19:18 | Inpatient (IN) | payer MEDICARE, BC ==
[~2018-05-18] VITALS: Ht 167.6 cm; Wt 81.8 kg
[~2018-05-18 19:18] MED LIST changes: +ACETAMINOPHEN325 MG PO; +ATIVAN0.5 MG PO; +BENADRYL 2% CRE30 GM TOPICAL; +COREG CR10 MG PO; +DEPAKOTE500 MG PO; +Ditropan XL PO; +FEXOFENADINE H180 MG PO; +PROTONIX40 MG PO; +SYNTHROID112 MCG PO; +SYNTHROID25 MCG PO; +TOPAMAX200 MG PO; +VITAMIN B-121000 MCG PO; +VITAMIN D31000 UNI2 PO
[2018-05-18 20:26] LABS: APPEARANCE CLEAR (CLEAR); BILIRUBIN NEGATIVE (NEGATIVE); COLOR YELLOW (YELLOW); GLUCOSE NEGATIVE (NEGATIVE); KETONE SMALL mg/dL (NEGATIVE); NITRITE NEGATIVE (NEGATIVE); PROTEIN NEGATIVE (NEGATIVE); UROBILINOGEN NORMAL (NORMAL)
--- NOTE | 2018-05-18 20:43 | NUR ---
CT CALLED AND AVISED THE PATIENT HAD A SEIZURE WHILE THEY WHERE GETTING READY TO SCAN HER. THEY REPORT PATIENT BEGAN VOMITING AND THEN STARTED HAVING A FULL BODY SEIZURE.
--- NOTE | 2018-05-18 20:46 | NUR ---
UPON ARRIVAL PT WAS SNORING RESP EFFORT, IV WAS STARTED AND ORDER FOR ATIVAN [address] LUCIANO
[2018-05-18 20:55] VITALS: BP 123/62
[2018-05-18 21:26] LABS: ALBUMIN 3.1 g/dL (3.4-5.0); ALKALINE PHOSPHATASE 56 U/L (46-116); ALT (SGPT) 44 U/L (10-68); BILIRUBIN - TOTAL 0.67 mg/dL (0.2-1.3); CALCIUM 7.1 mg/dL (8.5-10.1); CARBON DIOXIDE 15.5 mmol/L (21.0-32.0); CREATININE - SERUM 0.6 mg/dL (0.6-1.3); PROTEIN - SERUM 6.2 g/dL (6.4-8.2); UREA NITROGEN 6 mg/dL (7-18); VALPROIC ACID (DEPAKOTE) 34.6 ug/mL (50.0-100.0); eGFR NON AFRICAN AMERICAN > 90 mL/min (90-120)
[2018-05-18 21:27] LABS: CALC OSMOLALITY 213 mosm/kg (275-300); GLUCOSE 171 mg/dL (74-106)
[2018-05-18 21:29] LABS: CHLORIDE - SERUM 75 mmol/L (98-107); SODIUM 104 mmol/L (136-145)
[2018-05-18 21:34] LABS: BASOPHILS 0.1 % (0-2); EOSINOPHILS 0.1 % (0-7); HEMATOCRIT 34.8 % (36.0-48.0); HEMOGLOBIN 12.5 g/dL (12-16); IMMATURE GRANULOCYTES 0.7 % (0-5); LYMPHOCYTES 15.8 % (15-50); MCH 30.6 pg (26.0-34.0); MCHC 35.9 g/dL (31.0-37.0); MCV 85.1 fL (80.0-100.0); MEAN PLATELET VOLUME 11.5 fL (7.4-10.4); MONOCYTES 5.2 % (2-11); NEUTROPHILS 78.1 % (40-80); PLATELET COUNT 187 10x3/uL (130-400); RBC 4.09 10x6/uL (4.00-5.40); RDW 12.5 % (11.5-14.5); WBC 8.3 10x3/uL (4.8-10.8)
[2018-05-18 22:00] VITALS: BP 111/60
--- NOTE | 2018-05-18 22:28 | NUR ---
JOANN CARE PROVIDED, BED LINENS CHANGED, CLEAN GOWN AND BRIEF PUT ON PT.
[2018-05-18 23:00] VITALS: BP 125/64
--- NOTE | 2018-05-18 23:02 | NUR ---
PT RESTING EYES CLOSED, RR EVEN AND UNLABORED, VSS, WILL CONTINUE TO MONITOR.
[2018-05-19] VITALS (11 sets, daily range): BP systolic 92–152; BP diastolic 48–78; Ht 167.6 cm; Wt 81.8 kg
--- NOTE | 2018-05-19 00:05 | NUR ---
2100 ML OF CLEAR YELLOW URINE EMPTIED FROM F/C
--- NOTE | 2018-05-19 01:08 | NUR ---
1200 ML OF VERY CLEAR LIGHT COLORED URINE EMPTIED FROM MCCULLOUGH
--- NOTE | 2018-05-19 02:13 | NUR ---
1100 ML OF CLEAR, VERY LIGHT YELLOW URINE EMPTIED FROM PT'S MCCULLOUGH.
--- NOTE | 2018-05-19 03:30 | NUR ---
750 ML OF CLEAR, LIGHT YELLOW URINE EMPTIED FROM PT'S MCCULLOUGH.
--- NOTE | 2018-05-19 04:45 | NUR ---
ICU NURSE AT BEDSIDE COMPLETING PT'S ADMISSION ASSESSMENT.
[2018-05-19 04:51] LABS: CALCIUM 8.2 mg/dL (8.5-10.1); CHLORIDE - SERUM 90 mmol/L (98-107); CREATININE - SERUM 0.6 mg/dL (0.6-1.3); POTASSIUM - SERUM 3.9 mmol/L (3.5-5.1); SODIUM 122 mmol/L (136-145); eGFR NON AFRICAN AMERICAN > 90 mL/min (90-120)
[2018-05-19 04:54] LABS: CALC OSMOLALITY 242 mosm/kg (275-300); CARBON DIOXIDE 21.4 mmol/L (21.0-32.0); GLUCOSE 93 mg/dL (74-106); UREA NITROGEN 4 mg/dL (7-18)
--- NOTE | 2018-05-19 06:45 | NUR ---
3% SODIUM CHLORIDE STOPPED, WAITING ON PHARMACY TO SEND NEXT ORDERED FLUIDS.
[2018-05-19 07:31] LABS: BASOPHILS 0 % (0-2); EOSINOPHILS 0.1 % (0-7); HEMATOCRIT 38.1 % (36.0-48.0); HEMOGLOBIN 13.7 g/dL (12-16); IMMATURE GRANULOCYTES 0.5 % (0-5); LYMPHOCYTES 21.3 % (15-50); MCH 30.6 pg (26.0-34.0); MONOCYTES 12.4 % (2-11); NEUTROPHILS 65.7 % (40-80); PLATELET COUNT 219 10x3/uL (130-400); RBC 4.48 10x6/uL (4.00-5.40); RDW 12.6 % (11.5-14.5); WBC 9.4 10x3/uL (4.8-10.8)
[2018-05-19 08:19] LABS: CALC OSMOLALITY 248 mosm/kg (275-300); CALCIUM 8.1 mg/dL (8.5-10.1); CARBON DIOXIDE 17.5 mmol/L (21.0-32.0); CHLORIDE - SERUM 95 mmol/L (98-107); CREATININE - SERUM 0.6 mg/dL (0.6-1.3); GLUCOSE 84 mg/dL (74-106); POTASSIUM - SERUM 3.9 mmol/L (3.5-5.1); SODIUM 126 mmol/L (136-145); UREA NITROGEN 4 mg/dL (7-18); eGFR NON AFRICAN AMERICAN > 90 mL/min (90-120)
--- NOTE | 2018-05-19 08:31 | NUR ---
1500 ML URINE OUTPUT. SLEEPING, AWAKES EASILY. ORIENTED X 4. EXTRA BLANKETS GIVEN. NO NEEDS NOTED. UPDATED ON PLAN OF CARE AND DELAYS IN CARE. WILL CONTINUE TO MONITOR.
--- NOTE | 2018-05-19 08:57 | NUR ---
POC GLUCOSE 69. DIET TRAY GIVEN
--- NOTE | 2018-05-19 10:13 | NUR ---
POC GLUCOSE 106
--- NOTE | 2018-05-19 11:22 | NUR ---
POC GLUCOSE 91
--- NOTE | 2018-05-19 12:17 | NUR ---
FAMILY AT BEDSIDE. VERBAL PERMISSION RECEIVED FROM PATIENT TO DISCUSS CARE. PATIENT AND FAMILY UPDATED ON PLAN OF CARE AND DELAYS IN CARE. PATIENT GIVEN DIET TRAY, SHE IS UNABLE TO EAT REGULAR FOODS DUE TO MOUTH SORES AND NO DENTURES. FAMILY STATES SHE HAS NOT BEEN EATING NORMALLY FOR A FEW DAYS DUE TO THE HER MOUTH PAIN DIABETIC MECHANICAL SOFT DIET TRAY ORDERED.
--- NOTE | 2018-05-19 12:59 | NUR ---
URINE OUTPUT 1000 [address]
--- NOTE | 2018-05-19 13:30 | NUR ---
PATIENT AWAKE AND ALERT, ADJUSTED TO HOB. SHE ATE A SMALL AMOUNT OF FOOD. NO NEEDS NOTED. UPDATED ON PLAN OF CARE. WILL CONTINUE TO MONITOR.
[2018-05-19 13:41] LABS: CALC OSMOLALITY 260 mosm/kg (275-300); CARBON DIOXIDE 19.9 mmol/L (21.0-32.0); CHLORIDE - SERUM 97 mmol/L (98-107); CREATININE - SERUM 0.6 mg/dL (0.6-1.3); GLUCOSE 97 mg/dL (74-106); POTASSIUM - SERUM 3.9 mmol/L (3.5-5.1); SODIUM 131 mmol/L (136-145); eGFR NON AFRICAN AMERICAN > 90 mL/min (90-120)
[2018-05-19 13:43] LABS: UREA NITROGEN 6 mg/dL (7-18)
--- NOTE | 2018-05-19 13:52 | MORECARE ---
CASE MANAGEMENT DISCHARGE SUMMARY PATIENT: RAPHAEL DUENAS UNIT: [id number] ADM DATE: 05/18/18 AGE: 68 : 49 SEX: F ROOM/BED: D.E14 AUTHOR: RAO,DOC PHYSICIAN: REFERRING PHYSICIAN: JAZMYNE BRANCH MD DATE OF SERVICE: 05/19/18 Discharge Plan Patient Name: RAPHAEL DUENAS Facility: [facility]:[place] : 1950 Planned Disposition: Home Anticipated Discharge Date: 05/21/18 Discharge Date: Expected LOS: 3 Initial Reviewer: [email or web address] Initial Review Date: 05/18/2018 Generated: 05/19/18 2:52 pm DCP- Discharge Planning Updated by [id number]: Hilary Galindo on 05/19/18 12:[address] Patient Name: RAPHAEL DUENAS Admission Status: ER Accout number: [id number] Admission Date: 05-18-2018 : 1950 Admission Diagnosis: Attending: JAZMYNE BRANCH Current LOS: 1 Anticipated DC Date: 05-21-2018 Planned Disposition: Home Primary Insurance: MEDICARE A & B Discharge Planning Comments: CM met with patient to complete initial dc planning assessment. CM educated patient on the CM role and verbal consent given by patient to complete assessment. Patient lives at home with her and her son. At discharge patient plans to return home and feels this is a safe discharge. CM discussed availability of home health, rehab services, and medical equipment. Patient denied known discharge needs at this time. CM will continue to follow and will assist as needed with dc plans/needs. Web Mobile Designer: Hilary Galindo RN, [facility] DCPIA - Discharge Planning Initial Assessment Updated by [id number]: Hilary Galindo on 05/19/18 1:51 pm * Is the patient Alert and Oriented? Yes * How many steps to enter\exit or inside your home? Two * PCP Dr. Abreu * Pharmacy [facility] * Preadmission Environment Home with Family * ADLs Independent * Equipment Glucometer * List name and contact numbers for known caregivers / representatives who currently or will assist patient after discharge: Kavya De Souza - daughter [phone] or [phone] * Verbal permission to speak to the caregivers and representatives has been obtained from the patient. Yes * Community resources currently utilized None * Additional services required to return to the preadmission environment? No * Can the patient safely return to the preadmission environment? Yes * Has this patient been hospitalized within the prior 30 days at any hospital? No Patient Name: RAPHAEL DUENAS Page [id number] at 1352 All edits/amendments must be made on the electronic document DICTATION DATE: 05/19/181351 SHAKER PLATE OPERATOR: LIZETH 05/19/18 1352 RPT#: [id number] DC DATE: STATUS: ADM IN [facility] [address] [place] [address] END OF REPORT
--- NOTE | 2018-05-19 14:10 | NUR ---
CONTACTED PHARMACY FOR NASAL SPRAY THAT WASN'T RECEIVED.
--- NOTE | 2018-05-19 15:10 | NUR ---
PATIENT SLEEPING, AWAKES TO VERBAL STIMULI. NO NEEDS NOTED. UPDATED ON PLAN OF CARE AND DELAYS IN CARE. WILL CONTINUE TO MONITOR.
[2018-05-19 16:59] LABS: CALC OSMOLALITY 257 mosm/kg (275-300); CARBON DIOXIDE 21.4 mmol/L (21.0-32.0); CHLORIDE - SERUM 98 mmol/L (98-107); CREATININE - SERUM 0.7 mg/dL (0.6-1.3); POTASSIUM - SERUM 3.5 mmol/L (3.5-5.1); SODIUM 131 mmol/L (136-145); UREA NITROGEN 5 mg/dL (7-18); eGFR NON AFRICAN AMERICAN 88 mL/min (90-120)
[2018-05-19 17:02] LABS: GLUCOSE 58 mg/dL (74-106)
--- NOTE | 2018-05-19 17:15 | NUR ---
FSBS 44. NOTIFIED OF SAME. GIVEN HALF AMP OF D50 SLOW IVP. REQUESTED AND GIVNE 650MG TYLENOL PO FOR C/O HEADACHE. WILL MONITOR.
[2018-05-19 19:54] LABS: CALC OSMOLALITY 261 mosm/kg (275-300); CALCIUM 8.6 mg/dL (8.5-10.1); CARBON DIOXIDE 22.4 mmol/L (21.0-32.0); CHLORIDE - SERUM 100 mmol/L (98-107); CREATININE - SERUM 0.7 mg/dL (0.6-1.3); GLUCOSE 82 mg/dL (74-106); POTASSIUM - SERUM 3.3 mmol/L (3.5-5.1); SODIUM 133 mmol/L (136-145); UREA NITROGEN 5 mg/dL (7-18); eGFR NON AFRICAN AMERICAN 88 mL/min (90-120)
[2018-05-20] VITALS: BP 135/77
[2018-05-20 04:00] VITALS: BP 119/68
[2018-05-20 05:49] LABS: BASOPHILS 0.2 % (0-2); EOSINOPHILS 0.5 % (0-7); HEMATOCRIT 39.2 % (36.0-48.0); HEMOGLOBIN 13.6 g/dL (12-16); IMMATURE GRANULOCYTES 0.3 % (0-5); LYMPHOCYTES 39.9 % (15-50); MCH 30.6 pg (26.0-34.0); MCHC 34.7 g/dL (31.0-37.0); MEAN PLATELET VOLUME 11.4 fL (7.4-10.4); MONOCYTES 16.2 % (2-11); NEUTROPHILS 42.9 % (40-80); PLATELET COUNT 217 10x3/uL (130-400); RBC 4.45 10x6/uL (4.00-5.40); RDW 13.7 % (11.5-14.5)
[2018-05-20 06:04] LABS: CALC OSMOLALITY 267 mosm/kg (275-300); CALCIUM 8.5 mg/dL (8.5-10.1); CARBON DIOXIDE 22.3 mmol/L (21.0-32.0); CHLORIDE - SERUM 101 mmol/L (98-107); CREATININE - SERUM 0.6 mg/dL (0.6-1.3); GLUCOSE 76 mg/dL (74-106); POTASSIUM - SERUM 3.1 mmol/L (3.5-5.1); SODIUM 136 mmol/L (136-145); UREA NITROGEN 4 mg/dL (7-18); eGFR NON AFRICAN AMERICAN > 90 mL/min (90-120)
[2018-05-20 06:09] LABS: MCV 88.1 fL (80.0-100.0); WBC 6.4 10x3/uL (4.8-10.8)
--- NOTE | 2018-05-20 06:46 | NUR ---
PT IN BED IN LOW FOWLERS POSITION. ALERT AND ORIENTED X 4. RESPIRATIONS EVEN AND UNLABORED. RESPIRATIONS EVEN AND UNLABORED. NO VISUAL CUES OF DISTRESS NOTED. DENIES ANY OTHER NEEDS AT THIS TIME. BED LOW, SIDE RAILS UP X2 CALL LIGHT IN REACH. WILL CONTINUE TO MONITOR.
--- NOTE | 2018-05-20 08:33 | NUR ---
PT ALERT X 4. BREATH SOUNDS CLEAR BILAT. IV TO LEFT FOREARM, SALINE SELENA. MCCULLOUGH IN PLACE, URINE YELLOW AND CLEAR. PT REPORTING BAD HEADACHE RATED 8/10, SAYS SHE TAKES AISHA AT HOME TO HELP WITH ALLERGY HEADACHES. MEDICATED PER ORDERS WITH TYLENOL, WILL MONITOR. BREAKFAST IN ROOM. BED LOW, CALL LIGHT IN REACH. NO OTHER NEEDS AT THIS TIME.
[2018-05-20 08:40] LABS: CALC OSMOLALITY 268 mosm/kg (275-300); CALCIUM 8.6 mg/dL (8.5-10.1); CARBON DIOXIDE 23.6 mmol/L (21.0-32.0); CHLORIDE - SERUM 101 mmol/L (98-107); CREATININE - SERUM 0.5 mg/dL (0.6-1.3); GLUCOSE 90 mg/dL (74-106); POTASSIUM - SERUM 3.6 mmol/L (3.5-5.1); SODIUM 136 mmol/L (136-145); UREA NITROGEN 5 mg/dL (7-18); eGFR NON AFRICAN AMERICAN > 90 mL/min (90-120)
[2018-05-20 08:56] VITALS: BP 121/71
[2018-05-20 14:31] VITALS: BP 111/72
--- NOTE | 2018-05-20 16:27 | NUR ---
IV TO LEFT FOREARM AND LEFT AC DC'D, TIPS INTACT, PRESSURE DRESSING APPLIED. DISCHARGE PAPERWORK SIGNED, ALL QUESTIONS ANSWERED.
--- NOTE | 2018-05-21 13:04 | MORECARE ---
CASE MANAGEMENT DISCHARGE SUMMARY PATIENT: RAPHAEL DUENAS UNIT: [id number] ADM DATE: 05/18/18 AGE: 68 : 49 SEX: F ROOM/BED: D.2206 AUTHOR: ROA,DOC PHYSICIAN: REFERRING PHYSICIAN: JAZMYNE BRANCH MD DATE OF SERVICE: 05/21/18 Discharge Plan Patient Name: RAPHAEL DUENAS Facility: [facility]:[place] : 1950 Planned Disposition: Home Anticipated Discharge Date: 05/21/18 Discharge Date: 05/20/2018 Expected LOS: 3 Initial Reviewer: [email or web address] Initial Review Date: 05/18/2018 Generated: 05/21/18 2:03 pm DCP- Discharge Planning Updated by [email or web address]: Hilary Galindo on 05/19/18 12:[address] Patient Name: RAPHAEL DUENAS Admission Status: ER Accout number: [id number] Admission Date: 05-18-2018 : 1950 Admission Diagnosis: Attending: JAZMYNE BRANCH Current LOS: 1 Anticipated DC Date: 05-21-2018 Planned Disposition: Home Primary Insurance: MEDICARE A & B Discharge Planning Comments: CM met with patient to complete initial dc planning assessment. CM educated patient on the CM role and verbal consent given by patient to complete assessment. Patient lives at home with her and her son. At discharge patient plans to return home and feels this is a safe discharge. CM discussed availability of home health, rehab services, and medical equipment. Patient denied known discharge needs at this time. CM will continue to follow and will assist as needed with dc plans/needs. Street Worker: Hilary Galindo RN, [facility] DCPIA - Discharge Planning Initial Assessment Updated by [email or web address]: Hilary Galindo on 05/19/18 1:51 pm * Is the patient Alert and Oriented? Yes * How many steps to enter\exit or inside your home? Two * PCP Dr. Abreu * Pharmacy [facility] * Preadmission Environment Home with Family * ADLs Independent * Equipment Glucometer * List name and contact numbers for known caregivers / representatives who currently or will assist patient after discharge: Kavya De Souza - daughter [phone] or [phone] * Verbal permission to speak to the caregivers and representatives has been obtained from the patient. Yes * Community resources currently utilized None * Additional services required to return to the preadmission environment? No * Can the patient safely return to the preadmission environment? Yes * Has this patient been hospitalized within the prior 30 days at any hospital? No Last DP export: 05/19/18 12:52 p Patient Name: RAPHAEL DUENAS Page [phone] at 1304 All edits/amendments must be made on the electronic document DICTATION DATE: 05/21/18 1303 CHANNEL ROUGHER: LIZETH 05/21/18 1303 RPT#: [id number] DC DATE:05/20/18 STATUS: DIS IN [facility] [address] [place] [address] END OF REPORT
== END 2018-05-20 17:27 | disposition home or self-care (01) | DRG 640 ==
LOC: D.ER 19:18 → D.MS 22:22 → D.EDHOLD 22:22 → D.MS 05-19 16:13
PROVIDERS: Family Medicine; ADMIT Internal Medicine Nephrology
DX: E87.1 Hypo-osmolality and hyponatremia (principal); J69.0 Pneumonitis due to inhalation of food and vomit; G93.41 Metabolic encephalopathy; G40.89 Other seizures; E11.9 Type 2 diabetes mellitus without complications; I10 Essential (primary) hypertension; F31.9 Bipolar disorder, unspecified; G47.33 Obstructive sleep apnea (adult) (pediatric); K21.9 Gastro-esophageal reflux disease without esophagitis; K59.09 Other constipation; E78.5 Hyperlipidemia, unspecified; T50.2X5A Adverse effect of carbonic-anhydrase inhibitors, benzothiadiazides and other diuretics, initial encounter

== ENCOUNTER 2018-05-26 04:55 | Inpatient (IN) | payer MEDICARE, BC ==
[~2018-05-26] VITALS: Ht 167.6 cm; Wt 82.1 kg
[2018-05-26] VITALS (20 sets, daily range): BP systolic 19–144; BP diastolic 45–87; Ht 167.6 cm; Wt 82.1 kg
--- NOTE | 2018-05-26 05:20 | NUR ---
FAMILY AT BEDSIDE
[2018-05-26 05:56] LABS: BASOPHILS 0.1 % (0-2); EOSINOPHILS 0.3 % (0-7); HEMATOCRIT 33.6 % (36.0-48.0); HEMOGLOBIN 12.3 g/dL (12-16); IMMATURE GRANULOCYTES 0.9 % (0-5); LYMPHOCYTES 19.6 % (15-50); MCH 30.4 pg (26.0-34.0); MCHC 36.6 g/dL (31.0-37.0); MCV 83.2 fL (80.0-100.0); MEAN PLATELET VOLUME 10.3 fL (7.4-10.4); MONOCYTES 7.9 % (2-11); NEUTROPHILS 71.2 % (40-80); PLATELET COUNT 186 10x3/uL (130-400); RBC 4.04 10x6/uL (4.00-5.40); RDW 12.4 % (11.5-14.5); WBC 6.8 10x3/uL (4.8-10.8)
[2018-05-26 06:11] LABS: APTT 29.6 SECONDS (22.8-39.4); INR 1.06 (0.85-1.17); PROTIME 13.3 SECONDS (11.6-15.0)
[2018-05-26 06:13] LABS: D-DIMER-QUANTITATIVE 0.35 ug/mLFEU (0.20-0.54)
[2018-05-26 06:31] LABS: APPEARANCE CLEAR (CLEAR); BILIRUBIN NEGATIVE (NEGATIVE); COLOR STRAW (YELLOW); GLUCOSE NEGATIVE (NEGATIVE); KETONE SMALL mg/dL (NEGATIVE); NITRITE NEGATIVE (NEGATIVE); PH 7.5 (5.0-6.0); PROTEIN NEGATIVE (NEGATIVE); SPECIFIC GRAVITY 1.005 (1.005-1.020); UROBILINOGEN NORMAL (NORMAL)
[2018-05-26 06:33] LABS: ALKALINE PHOSPHATASE 53 U/L (46-116); ALT (SGPT) 47 U/L (10-68); BILIRUBIN - TOTAL 0.65 mg/dL (0.2-1.3); CALCIUM 7.6 mg/dL (8.5-10.1); CKMB 35.9 U/L (0.0-3.6); CREATININE - SERUM 0.5 mg/dL (0.6-1.3); GLUCOSE 94 mg/dL (74-106); LIPASE 106 U/L (73-393); MAGNESIUM - SERUM 1.3 mg/dL (1.8-2.4); PRO BNP 231 pg/mL (0-125); PROTEIN - SERUM 6.2 g/dL (6.4-8.2); THYROID STIMULATING HORMONE 1.11 uIU/mL (0.36-3.74); TROPONIN-I 0.021 ng/mL (0.000-0.060); UREA NITROGEN 5 mg/dL (7-18); eGFR NON AFRICAN AMERICAN > 90 mL/min (90-120)
[2018-05-26 06:37] LABS: CALC OSMOLALITY 220 mosm/kg (275-300); CREATINE KINASE 1121 UL (21-215)
[2018-05-26 06:40] LABS: CHLORIDE - SERUM 77 mmol/L (98-107); POTASSIUM - SERUM 2.7 mmol/L (3.5-5.1); SODIUM 110 mmol/L (136-145)
--- NOTE | 2018-05-26 07:06 | NUR ---
ATTEMPTED TO CALL REPORT TO ICU. NURSE TAKING PT IS UNAVABLE TO TAKE REPORT AT PRESENT
[2018-05-26 12:40] LABS: CALCIUM 7.6 mg/dL (8.5-10.1); CARBON DIOXIDE 22.3 mmol/L (21.0-32.0); CREATININE - SERUM 0.5 mg/dL (0.6-1.3); GLUCOSE 87 mg/dL (74-106); eGFR NON AFRICAN AMERICAN > 90 mL/min (90-120)
[2018-05-26 12:54] LABS: CALC OSMOLALITY 233 mosm/kg (275-300); UREA NITROGEN 3 mg/dL (7-18)
[2018-05-26 12:55] LABS: CHLORIDE - SERUM 85 mmol/L (98-107); POTASSIUM - SERUM 2.9 mmol/L (3.5-5.1)
[2018-05-26 12:58] LABS: SODIUM 118 mmol/L (136-145)
[2018-05-26 18:11] LABS: CALC OSMOLALITY 253 mosm/kg (275-300); CALCIUM 8.2 mg/dL (8.5-10.1); CARBON DIOXIDE 19.6 mmol/L (21.0-32.0); CHLORIDE - SERUM 96 mmol/L (98-107); CREATININE - SERUM 0.5 mg/dL (0.6-1.3); GLUCOSE 92 mg/dL (74-106); SODIUM 128 mmol/L (136-145); UREA NITROGEN 3 mg/dL (7-18); eGFR NON AFRICAN AMERICAN > 90 mL/min (90-120)
[2018-05-26 18:12] LABS: POTASSIUM - SERUM 3.7 mmol/L (3.5-5.1)
--- NOTE | 2018-05-26 19:40 | NUR ---
REPORT REC'D AND CARE ASSUMED, REC'D PT RESTING IN BED EYES CLOSED, ON ROOM AIR, EASILY AWAKENS, ORIENTED X 4 AT THIS TIME, PT COMPLAINS OF HEADACHE, LEFT FOREARM PIV WITH 3% NS INFUSING @ 30CC/HR, BP STABLE, CM-SR, MCCULLOUGH PATENT DRAINING CLEAR YELLOW URINE, PT MAEE, PPP, BED IN LOW POSITION, CALL LIGHT IN REACH.
--- NOTE | 2018-05-26 21:15 | NUR ---
EVENING MEDS GIVEN, PT SLEEPING WHEN NURSE NOT IN ROOM , TOOK PO MEDS WITHOUT DIFFICULTY, WILL MONITOR CLOSELY FOR CHANGES.
--- NOTE | 2018-05-26 23:15 | NUR ---
REASSESSMENT COMPLETE, PT ORIENTED TO PERSON, PLACE, AND TIME, DENIES HEADACHE WILL CONTINUE CURRENT PLAN OF CARE,
[2018-05-27] VITALS (14 sets, daily range): BP systolic 92–146; BP diastolic 55–74
--- NOTE | 2018-05-27 01:25 | NUR ---
FRONT END UI DEVELOPER NOTIFIED OF NEED FOR SECOND BAG OF 3% NS, STATED SHE WOULD CLARIFY ORDER FOR "X 2" WITH ED PHYSICIAN.
--- NOTE | 2018-05-27 01:50 | NUR ---
NEW ORDER REC'D FOR 3% NS TO BE DECREASED TO 15CC/HR.
--- NOTE | 2018-05-27 03:30 | NUR ---
REASSESSMENT COMPLETED, NO CHANGES FROM PREVIOUS ASSESSMENT, PT REMAINS ORIENTED X 4, VSS, PT DENIES PAIN OR NEEDS.
[2018-05-27 04:07] LABS: ALBUMIN 2.7 g/dL (3.4-5.0); ALKALINE PHOSPHATASE 48 U/L (46-116); BASOPHILS 0.2 % (0-2); BILIRUBIN - TOTAL 0.42 mg/dL (0.2-1.3); CHLORIDE - SERUM 102 mmol/L (98-107); CREATININE - SERUM 0.6 mg/dL (0.6-1.3); EOSINOPHILS 0.5 % (0-7); GLUCOSE 81 mg/dL (74-106); HEMATOCRIT 36.2 % (36.0-48.0); HEMOGLOBIN 12.6 g/dL (12-16); IMMATURE GRANULOCYTES 0.7 % (0-5); LYMPHOCYTES 34.2 % (15-50); MCH 30.3 pg (26.0-34.0); MCHC 34.8 g/dL (31.0-37.0); MEAN PLATELET VOLUME 10.4 fL (7.4-10.4); MONOCYTES 13.7 % (2-11); NEUTROPHILS 50.7 % (40-80); PHOSPHOROUS 2.2 mg/dL (2.5-4.9); PLATELET COUNT 195 10x3/uL (130-400); POTASSIUM - SERUM 3.3 mmol/L (3.5-5.1); PROTEIN - SERUM 5.8 g/dL (6.4-8.2); RBC 4.16 10x6/uL (4.00-5.40); RDW 13.4 % (11.5-14.5); SODIUM 133 mmol/L (136-145); WBC 6.1 10x3/uL (4.8-10.8); eGFR NON AFRICAN AMERICAN > 90 mL/min (90-120)
[2018-05-27 04:08] LABS: ALT (SGPT) 61 U/L (10-68); CALC OSMOLALITY 261 mosm/kg (275-300); UREA NITROGEN 4 mg/dL (7-18)
--- NOTE | 2018-05-27 05:00 | NUR ---
PT RESTING ON SIDE, EYES CLOSED RESP EVEN AND UNLABORED, NO DISTRESS NOTED, SR UP X 2, CALL LIGHT IN REACH, BED IN LOW POSITION.
--- NOTE | 2018-05-27 07:15 | NUR ---
REPORT RECIEVED, SHIFT ASSESSMENT COMPLETE, PT IS ALERT AND ORIENTED, ALL PPP, VSS, CALL LIGHT IN REACH
--- NOTE | 2018-05-27 09:20 | NUR ---
NO VISITORS AT THIS TIME, WILL CON'T TO MONITOR
--- NOTE | 2018-05-27 12:30 | NUR ---
DR. BRANCH AT BEDSIDE, UPDATE GIVEN, NEW ORDERS RECIEVED
--- NOTE | 2018-05-27 13:26 | NUR ---
FAMILY AT BEDSIDE, UPDATE GIVEN
--- NOTE | 2018-05-27 13:55 | NUR ---
REPORT CALLED TO SHARYN ON MED SURG
--- NOTE | 2018-05-27 19:59 | NUR ---
PATIENT RESTING IN BED AND DENIES NEEDS AT THIS TIME. NO S/S OF DISTRESS. BED IN LOWEST POSITION AND CALL LIGHT WITHIN REACH. ENCOURAGED THE PATIENT TO CALL IF SHE HAS NEEDS. WILL CONTINUE TO MONITOR.
--- NOTE | 2018-05-27 23:51 | NUR ---
CALLED FOR HEART MONITOR, NO MONITOR AVAILABLE AT THIS TIME. PATIENT ADDED TO WAIT LIST.
[2018-05-28 04:00] VITALS: BP 145/68
[2018-05-28 08:50] LABS: BASOPHILS 0.3 % (0-2); EOSINOPHILS 0.9 % (0-7); HEMATOCRIT 37.6 % (36.0-48.0); IMMATURE GRANULOCYTES 0.3 % (0-5); LYMPHOCYTES 30.3 % (15-50); MCH 30.4 pg (26.0-34.0); MCHC 34.6 g/dL (31.0-37.0); MCV 88.1 fL (80.0-100.0); MEAN PLATELET VOLUME 10.1 fL (7.4-10.4); MONOCYTES 15.4 % (2-11); NEUTROPHILS 52.8 % (40-80); PLATELET COUNT 199 10x3/uL (130-400); RBC 4.27 10x6/uL (4.00-5.40); WBC 5.9 10x3/uL (4.8-10.8)
[2018-05-28 08:53] VITALS: BP 160/71
[2018-05-28 08:58] LABS: CALC OSMOLALITY 268 mosm/kg (275-300); CALCIUM 8.3 mg/dL (8.5-10.1); CARBON DIOXIDE 21.5 mmol/L (21.0-32.0); CHLORIDE - SERUM 103 mmol/L (98-107); CREATININE - SERUM 0.6 mg/dL (0.6-1.3); GLUCOSE 97 mg/dL (74-106); SODIUM 136 mmol/L (136-145); UREA NITROGEN 3 mg/dL (7-18); eGFR NON AFRICAN AMERICAN > 90 mL/min (90-120)
--- NOTE | 2018-05-28 09:26 | NUR ---
PATIENT IN BED WITH NO COMPLAINTS AT THIS TIME. SITTING UP IN BED TALKING TO PARTS COUNTER SPECIALIST. NO COMPLAINTS OR SIGNS OF DISTRESS. CALL LIGHT WITHIN REACH.
[2018-05-28] MEDS ORDERED: THERMOTABS 1 GM1 GM PO (11:05)
[2018-05-28] MEDS ORDERED: K-DUR20 MEQ PO (11:06)
--- NOTE | 2018-05-28 12:10 | MORECARE ---
CASE MANAGEMENT DISCHARGE SUMMARY PATIENT: RAPHAEL DUENAS UNIT: [id number] ADM DATE: 05/26/18 AGE: 68 : 49 SEX: F ROOM/BED: D.2206 AUTHOR: KRISTA YEH PHYSICIAN: REFERRING PHYSICIAN: PRAVIN GARCIA DO DATE OF SERVICE: 05/28/18 Discharge Plan Patient Name: RAPHAEL DUENAS Facility: [facility]:[place] : 1950 Planned Disposition: Home Anticipated Discharge Date: Discharge Date: Expected LOS: Initial Reviewer: [email or web address] Initial Review Date: 05/26/2018 Generated: 05/28/18 1:10 pm Comments DCP- Discharge Planning Updated by [id number]: Rosario Regan on 05/28/18 11:[address] Patient Name: RAPHAEL DUENAS Admission Status: ER Accout number: [id number] Admission Date: 05-26-2018 : 1950 Admission Diagnosis: Attending: PRAVIN GARCIA Current LOS: 2 Anticipated DC Date: Planned Disposition: Home Primary Insurance: MEDICARE A & B Discharge Planning Comments: CM met with patient to assess discharge planning needs. Patient stated that she lives independently at home where she plans to return today. Her son will be the one to drive her home. She lives on the same property as him. She stated that her home is safe to return. There are no steps or stairs in her home. She does not use any HH or DME and did not want home health. CM will continue to follow and assist with DC planning as needed Infant Lead Teacher: Rosario Regan DCPIA - Discharge Planning Initial Assessment Updated by [email or web address]: Rosario Regan on 05/28/18 12:07 pm * Is the patient Alert and Oriented? Yes * How many steps to enter\exit or inside your home? * PCP Estefania Abreu * Pharmacy [facility] * Preadmission Environment Home with Family * ADLs Independent * Equipment None * List name and contact numbers for known caregivers / representatives who currently or will assist patient after discharge: Kavya De Souza [phone] * Verbal permission to speak to the caregivers and representatives has been obtained from the patient. N/A * Community resources currently utilized None * Additional services required to return to the preadmission environment? No * Can the patient safely return to the preadmission environment? Yes * Has this patient been hospitalized within the prior 30 days at any hospital? No Patient Name: RAPHAEL DUENAS Page [phone] at 1210 All edits/amendments must be made on the electronic document DICTATION DATE: 05/28/181209 MANAGER WHOLESALE: LIZETH 05/28/18 1210 RPT#: [id number] DC DATE: STATUS: ADM IN [facility] [address] [place] [address] END OF REPORT
--- NOTE | 2018-05-28 13:13 | NUR ---
DISCUSSED DISCHARGE INSTRUCTIONS WITH PATIENT AND SON. FAMILY IS UPSET THAT PATIENT IS BEING DISCHARGED WHILE SHE IS NOT EATING. I READ CM NOTE TO HIM AND EXPLAINED THAT SHE REFUSED HH AND WANTS TO BE HOME INDEPENDANTLY. STRESSED TO PATIENT AND SON THE IMPORTANCE OF RESTRICTING FLUID TO 2L PER DAY AND TAKING NA AND K+ PRESCRIBED. CLAMPED MCUCLLOUGH CATHETER FOR BLADDER TRAINING. WILL REMOVE MCCULLOUGH AT 1335.
[2018-05-28 13:25] VITALS: BP 171/74
--- NOTE | 2018-05-28 13:40 | NUR ---
MCCULLOUGH CATHETER REMOVED. 9CC REMOVED FROM BULB. PATIENT TOLERATE WELL. STAT-LOCK REMOVED. AWAITING PATIENT TO VOID BEFORE DISCHARGE.
--- NOTE | 2018-05-28 14:46 | NUR ---
ASSISTED PATIENT TO BATHROOM WHERE SHE VOIDED. IV REMOVED TIP INTACT. TOLD FAMILY TO NOTIFY WHEN READY SO I CAN GET WHEELCHAIR.
--- NOTE | 2018-05-29 12:28 | MORECARE ---
CASE MANAGEMENT DISCHARGE SUMMARY PATIENT: RAPHAEL DUENAS UNIT: [id number] ADM DATE: 05/26/18 AGE: 68 : 49 SEX: F ROOM/BED: D.2206 AUTHOR: KRISTA YEH PHYSICIAN: REFERRING PHYSICIAN: PRAVIN GARCIA DO DATE OF SERVICE: 05/29/18 Discharge Plan Patient Name: RAPHAEL DUENAS Facility: [facility]:[place] : 1950 Planned Disposition: Home Anticipated Discharge Date: Discharge Date: 05/28/2018 Expected LOS: Initial Reviewer: [email or web address] Initial Review Date: 05/26/2018 Generated: 05/29/18 1:27 pm Comments DCP- Discharge Planning Updated by [email or web address]: Rosario Regan on 05/28/18 11:[address] Patient Name: RAPHAEL DUENAS Admission Status: ER Accout number: [id number] Admission Date: 05-26-2018 : 1950 Admission Diagnosis: Attending: PRAVIN GARCIA Current LOS: 2 Anticipated DC Date: Planned Disposition: Home Primary Insurance: MEDICARE A & B Discharge Planning Comments: CM met with patient to assess discharge planning needs. Patient stated that she lives independently at home where she plans to return today. Her son will be the one to drive her home. She lives on the same property as him. She stated that her home is safe to return. There are no steps or stairs in her home. She does not use any HH or DME and did not want home health. CM will continue to follow and assist with DC planning as needed Director Of Product Design: Rosario Regan DCPIA - Discharge Planning Initial Assessment Updated by [email or web address]: Rosario Regan on 05/28/18 12:07 pm * Is the patient Alert and Oriented? Yes * How many steps to enter\exit or inside your home? * PCP Estefania Abreu * [facility] * Preadmission Environment Home with Family * ADLs Independent * Equipment None * List name and contact numbers for known caregivers / representatives who currently or will assist patient after discharge: Kavya De Souza [phone] * Verbal permission to speak to the caregivers and representatives has been obtained from the patient. N/A * Community resources currently utilized None * Additional services required to return to the preadmission environment? No * Can the patient safely return to the preadmission environment? Yes * Has this patient been hospitalized within the prior 30 days at any hospital? No Last DP export: 05/28/18 11:10 a Patient Name: RAPHAEL DUENAS Page [phone] at 1228 All edits/amendments must be made on the electronic document DICTATION DATE: 05/29/181226 LOCAL TANKER TRUCK DRIVER: LIZETH 05/29/187 RPT#: [id number] DC DATE:05/28/18 STATUS: DIS IN [facility] [address] [place] [address] END OF REPORT
== END 2018-05-28 15:03 | disposition home or self-care (01) | DRG 640 ==
LOC: D.ER 04:55 → D.ICU 06:48 → D.MS 06:48
PROVIDERS: Family Medicine; Internal Medicine Nephrology; ADMIT Family Medicine
DX: E87.1 Hypo-osmolality and hyponatremia (principal); G93.41 Metabolic encephalopathy; E87.6 Hypokalemia; F31.9 Bipolar disorder, unspecified; E11.9 Type 2 diabetes mellitus without complications; I10 Essential (primary) hypertension; N32.81 Overactive bladder; E78.5 Hyperlipidemia, unspecified; R63.1 Polydipsia; E03.9 Hypothyroidism, unspecified; K59.09 Other constipation; G47.33 Obstructive sleep apnea (adult) (pediatric)

== ENCOUNTER 2018-06-15 14:29 | Inpatient (IN) | payer MEDICARE, BC ==
[~2018-06-15 14:29] MED LIST changes: +K-DUR20 MEQ PO; +THERMOTABS 1 GM1 GM PO
[2018-06-15 15:11] LABS: APTT 27.8 SECONDS (22.8-39.4); BASOPHILS 0.3 % (0-2); EOSINOPHILS 0.8 % (0-7); HEMOGLOBIN 12.3 g/dL (12-16); IMMATURE GRANULOCYTES 0.2 % (0-5); INR 1.08 (0.85-1.17); LYMPHOCYTES 32.8 % (15-50); MCH 30.6 pg (26.0-34.0); MCHC 33.2 g/dL (31.0-37.0); MEAN PLATELET VOLUME 10.8 fL (7.4-10.4); MONOCYTES 13.2 % (2-11); NEUTROPHILS 52.7 % (40-80); PLATELET COUNT 212 10x3/uL (130-400); PROTIME 13.5 SECONDS (11.6-15.0); RBC 4.02 10x6/uL (4.00-5.40); RDW 13.9 % (11.5-14.5); WBC 6.3 10x3/uL (4.8-10.8)
[2018-06-15 15:25] LABS: ALBUMIN 3.3 g/dL (3.4-5.0); ALKALINE PHOSPHATASE 62 U/L (46-116); ALT (SGPT) 48 U/L (10-68); BILIRUBIN - TOTAL 0.44 mg/dL (0.2-1.3); CALC OSMOLALITY 275 mosm/kg (275-300); CALCIUM 8.8 mg/dL (8.5-10.1); CARBON DIOXIDE 21.1 mmol/L (21.0-32.0); CHLORIDE - SERUM 104 mmol/L (98-107); CREATININE - SERUM 0.7 mg/dL (0.6-1.3); POTASSIUM - SERUM 3.2 mmol/L (3.5-5.1); PROTEIN - SERUM 7.2 g/dL (6.4-8.2); SODIUM 140 mmol/L (136-145); UREA NITROGEN 10 mg/dL (7-18); eGFR NON AFRICAN AMERICAN 88 mL/min (90-120)
--- NOTE | 2018-06-15 15:25 | NUR ---
CRITICAL LAB CALLED- BLOOD GLUCOSE 66, EDP NOTIFIED. PER EDP GIVE PT ORANGE JUICE.
[2018-06-15 15:27] LABS: GLUCOSE 66 mg/dL (74-106)
[2018-06-15 15:47] LABS: MAGNESIUM - SERUM 1.8 mg/dL (1.8-2.4)
[2018-06-15 15:55] LABS: UDS - AMPHET NEGATIVE QUAL (NEGATIVE); UDS - BARB NEGATIVE QUAL (NEGATIVE); UDS - BENZO NEGATIVE QUAL (NEGATIVE); UDS - COCAINE NEGATIVE QUAL (NEGATIVE); UDS - OPIATE NEGATIVE QUAL (NEGATIVE); UDS - PCP NEGATIVE QUAL (NEGATIVE); UDS - THC NEGATIVE QUAL (NEGATIVE)
[2018-06-15 15:55] LABS: CKMB 2.2 U/L (0.0-3.6); THYROID STIMULATING HORMONE 0.09 uIU/mL (0.36-3.74); TROPONIN-I 0.001 ng/mL (0.000-0.060)
[2018-06-15 15:57] LABS: CREATINE KINASE 77 UL (21-215)
[2018-06-15 16:07] LABS: APPEARANCE CLEAR (CLEAR); BILIRUBIN NEGATIVE (NEGATIVE); COLOR YELLOW (YELLOW); GLUCOSE NEGATIVE (NEGATIVE); KETONE NEGATIVE (NEGATIVE); NITRITE NEGATIVE (NEGATIVE); PROTEIN NEGATIVE (NEGATIVE); UROBILINOGEN NORMAL (NORMAL)
[2018-06-15 16:08] LABS: BACTERIA FEW /hpf (NONE SEEN); EPITHELIAL CELLS 0-5 /hpf (0-5); RED CELLS - URINE OCC /hpf (0-5); WHITE CELLS - URINE 0-5 /hpf (0-5)
--- NOTE | 2018-06-15 16:44 | NUR ---
PT BLOOD GLUCOSE AFTER ORANGE JUICE 78. EDP NOTIFED
--- NOTE | 2018-06-15 18:50 | NUR ---
BLOOD COMPLETED AT THIS TIME FROM PREVIOUS HOSPITAL.
--- NOTE | 2018-06-15 19:20 | NUR ---
PT CAME RUNNING OUT OF ROOM YELLING WITH HANDS RAISED PT HIT WALL AND FELL THEN ROLLED AROUND ON FLOOR. NO LOC NOTED PT DENIES ANY PAIN. PT AMBULATORY AT THIS TIME. NOTFIED. PT HELPED BACK TO ROOM AT THIS TIME. PT DENIES COMPLAINTS. PT UNABLE TO STATE WHAT MADE HER RUN DOWN HALLWAY. PT OK WITH POC FOR [facility] PLACEMENT.
--- NOTE | 2018-06-15 19:35 | NUR ---
PT ACCEPTED BY [facility]. PT OK WITH POC
--- NOTE | 2018-06-15 19:44 | NUR ---
BS 42 PT GIVEN SPRITE JUICE AND SANDWICH BOX WITH COOKIES AND CHIPS.
[2018-06-15 20:00] VITALS: BP 177/86
--- NOTE | 2018-06-15 20:19 | NUR ---
PT GIVEN ORANGE JUICE TO DRINK AT THIS TIME. PT HAS EATTEN COOKIES A FEW CHIPS AND DRANK SPRITE SO FAR. PT STATES THAT SHE IS A SLOW EATER.
[2018-06-15 20:43] LABS: CHOL - HDL RATIO 2.2 ratio (2.3-4.1); VALPROIC ACID (DEPAKOTE) 81.7 ug/mL (50.0-100.0)
--- NOTE | 2018-06-15 20:56 | NUR ---
SENIOR CALLED INFORMED OF BLOOD SUGAR ISSUES AND MEASURES TAKEN TO RAISE BS. . PT CURRENT BS IS 145. MD STATES OK TO BE TRANSPORTED TO DETENTION.
[2018-06-15 22:32] VITALS: BP 167/84
--- NOTE | 2018-06-16 00:19 | NUR ---
PATIENT ARRIVED AT 2100, FROM OUR E.D. , VSS, CODE WORD IS CRISTIAN, CONSENTS SIGNED, CODE STATUS IS FULL CODE, PHYSICIAN AWARE OF ADRIAN, WILL CONTINUE TO MONITOR.
--- NOTE | 2018-06-16 05:30 | NUR ---
PATIENT IS ANXIOUS AND RESTLESS, GIVEN ATIVAN 0.5 MG PO AT 23:15, SLEEPING QUIETLY AT 23:30.
--- NOTE | 2018-06-16 05:32 | NUR ---
AT 02:25 PATIENT WHO HAD BEEN SLEEPING QUIETLY CAME DOWN THE HALLWAY YELLING TOWARD THE NURSES STATION YELLING THAT SHE WAS NOT BIPOLAR, PATIENT WAS ABIGAIL ANXIOUS AND DIFFICULT TO REDIRECT, PATIENT GIVEN ATIVAN 0.5 MG IM AND HALDOL 2 MG IM , PATIENT SLEEPING QUIETLY AT 02:45, WILL CONTINUE TO MONITOR.
[2018-06-16 08:27] VITALS: BP 128/90
--- NOTE | 2018-06-16 10:00 | NUR ---
RECEIVED PATIENT IN DINING ROOM FOR B'FAST, ALERT, CALM, COOPERATIVE, NO AGGRESSION NOTED. MEDS ADMIN PER ORDERS WITH COMPLETE MED COMPLIANCE NOTED. COOPERATIVE WITH GROUP AND STAFF REQUESTS. CONT POC INCLUDING MEDS AND GROUP THERAPY DIRECTED.
[2018-06-16 10:16] VITALS: BMI 27.4
[2018-06-17 01:57] VITALS: BP 172/70
--- NOTE | 2018-06-17 10:00 | NUR ---
RECEIVED PATIENT IN DINING ROOM FOR B'FAST, ALERT, STATED THAT SHE WAS READY TO BE DISCHARGED TODAY. NO AGGRESSION NOTED. MEDS ADMIN PER ORDERS WITH COMPLETE MED COMPLIANCE NOTED. COOPERATIVE WITH GROUP AND STAFF. CONT POC INCLUDING MEDS AND GROUP THERAPY DIRECTED.
[2018-06-17 10:03] VITALS: BP 165/104
--- NOTE | 2018-06-17 18:12 | NUR ---
PATIENT COOPERATIVE THIS SHIFT BUT SOMEWHAT DEMANDING AT TIMES. NO AGGRESSION NOTED.
--- NOTE | 2018-06-17 22:09 | NUR ---
PATIENT IS QUIET, STAYS TO HERSELF, MAKES NEEDS KNOWN, COMPLIANT WITH MEDS, NO ADVERSE REACTION, WILL FOLLOW POC
[2018-06-17 22:53] VITALS: BP 135/84
--- NOTE | 2018-06-18 07:30 | NUR ---
REC'D PT IN HALLWAY WITH PEERS. CALM AND COOPERATIVE WITH ASSESSMENT. REDIRECT AND REORIENT NEEDED. FALL PRECAUTIONS IN PLACE. PRESCRIBED MEDS PROVIDED. MED COMPLIANT. WILL CONTINUE TO MONITOR Q 15 MINUTES FOR SAFETY. WILL CPOC.
[2018-06-18 08:00] VITALS: BP 125/81
[2018-06-18 10:31] VITALS: Wt 77.3 kg
[2018-06-18 12:13] LABS: FOLATE (FOLIC ACID) - SERUM 19.7 ng/mL (>3.0)
--- NOTE | 2018-06-18 15:29 | PN ---
PATIENT:RAPHAEL DUENAS MEDICAL RECORD: [id number] LOCATION:[facility] ADMISSION DATE: 06/15/18 PROGRESS NOTE DATE OF SERVICE: 06/17/2018 SUBJECTIVE: The patient's case was discussed with staff. She has no new complaint. OBJECTIVE: The patient denies that she would seek to harm herself or others. She did sleep reasonably well last night. ASSESSMENT: No change in diagnoses. PLAN: The patient has pretty limited insight about her situation. She is tolerating her medications reasonably well. She has a therapeutic Depakote level and her TSH was actually below normal recently. She will have her Synthroid reduced. In addition to this, I am going to start her on Effexor for its antidepressant effect. Her long-term prognosis is guarded. TRANSINT:[id number] Voice Confirmation ID: [id number] DOCUMENT ID: [id number] ANTWAN ARZATE MD at 1529 CC: [id number] DICTATION DATE: 06/17/18 1210 LABORATORY WORKER: 06/17/18 1232 ADM IN [facility] [address] [place] [id number]
[2018-06-18 20:03] VITALS: BP 114/82; BP 134/58
--- NOTE | 2018-06-18 21:33 | NUR ---
PATIENT IS PLEASANT AND STAYS TO HERSELF, MAKES NEEDS KNOWN, COMPLIANT WITH MEDS, NO ADVERSE REACTION NOTED. WILL FOLLOW POC
[2018-06-19 06:14] LABS: VITAMIN D 25 HYDROXY 34.6 ng/mL (30.0-100.0)
[2018-06-19 07:28] LABS: RAPID PLASMA REAGIN Non Reactive (Non Reactive)
--- NOTE | 2018-06-19 07:30 | NUR ---
REC'D PT IN HALLWAY WITH PEERS. CALM AND COOPERATIVE WITH ASSESSMENT. PT IS VERY QUIET THIS AM. PT CAN BE AGGRESSIVE AT TIMES. REDIRECT AND REORIENT NEEDED. PRESCRIBED MEDS PROVIDED. MED COMPLIANT. FALL PRECAUTIONS IN PLACE. WILL CONTINUE TO MONITOR Q 15 MINUTES FOR SAFETY. WILL CPOC.
[2018-06-19 08:00] VITALS: BP 97/63
--- NOTE | 2018-06-19 10:17 | NUR ---
Nutrition Follow Up: Chart reviewed Diet: ADA PO Intake: 18% meal avg - po intake is improving No BM since admit Labs reviewed - Glucose low at times Meds noted Rec continue current diet. Rec consider an appetite stimulant. Will continue to honor food preferences. RD following.
[2018-06-19 10:39] VITALS: BP 132/72
--- NOTE | 2018-06-19 12:02 | PN ---
PATIENT:RAPHAEL DUENAS MEDICAL RECORD: [id number] LOCATION:[facility] [address] ADMISSION DATE: 06/15/18 PROGRESS NOTE DATE OF SERVICE: 06/18/2018 SUBJECTIVE: The patient's case was discussed with staff. She has no new complaint. OBJECTIVE: The patient is in good behavioral control. She has tolerated her initial dose of Effexor well. She denies that she would seek to harm herself. ASSESSMENT: No change in diagnoses. PLAN: Current medicines and therapies have been reviewed and will be maintained. Long-term prognosis is guarded. TRANSINT:[id number] Voice Confirmation ID: [id number] DOCUMENT ID: [id number] ANTWAN ARZATE MD at 1202 CC: [id number] DICTATION DATE: 06/18/18 1621 CASEWORKER PROTECTIVE SERVICES: 06/18/18 2335 ADM IN [place] [id number] [place] [id number]
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
[2018-06-19] MEDS ORDERED: DESERYL PO (13:25)
[2018-06-19] MEDS ORDERED: EFFEXOR50 MG PO (13:25)
--- NOTE | 2018-06-19 23:03 | NUR ---
RECEIVED IN DAYROOM. SITTING IN CHAIR. ANXIOUS. ARGUMENTATIVE WITH STAFF. RESISTIVE TO REDIRECTION. BECAME COMBATIVE WITH STAFF. UNABLE TO REDIRECT. PRN ATIVAN 0.5 MG IM GIVEN FOR ANXIETY. PRN HALDOL 2 MG IM GIVEN FOR PSYCHOTIC UNSAFE BEHAVIOR. RESTING IN BED WITH EYES CLOSED AT THIS TIME. CONTINUE PLAN OF CARE.
[2018-06-19 23:36] VITALS: BP 117/58
--- NOTE | 2018-06-20 07:30 | NUR ---
REC'D PT IN HALLWAY WITH PEERS. PT IS WITHDRAWN. CALM AND COOPERATIVE WITH ASSESSMENT. REDIRECT AND REORIENT NEEDED. PRESCRIBED MEDS PROVIDED. MED COMPLIANT. FALL PRECAUTIONS IN PLACE. WILL CONTINUE TO MONITOR Q 15 MINUTES FOR SAFETY. WILL CPOC.
[2018-06-20 07:50] VITALS: BP 126/76
--- NOTE | 2018-06-20 15:37 | PN ---
PATIENT:RAPHAEL DUENAS MEDICAL RECORD: [id number] LOCATION:[facility] ADMISSION DATE: 06/15/18 PROGRESS NOTE DATE OF SERVICE: 06/19/2018 SUBJECTIVE: The patient's case was discussed with staff. She has no new complaint. OBJECTIVE: The patient is in good behavioral control. She has limited insight about her condition. She generally tolerates her medicines well. She is blunted and withdrawn at times. She is, however, fully oriented. She still does not have an adequate explanation for the events that precipitated this admission. ASSESSMENT: No change in diagnoses. PLAN: Current medicines and therapies have been reviewed and will be maintained. Long-term prognosis is guarded. Brief supportive and educational interventions were made. TRANSINT:[id number] Voice Confirmation ID: [id number] DOCUMENT ID: [id number] ANTWAN ARZATE MD at 1537 CC: [id number] DICTATION DATE: 06/19/18 1325 EMULSIFICATION OPERATOR: 06/19/18 1422 ADM IN [place] [id number] [place] [address]
--- NOTE | 2018-06-20 21:16 | NUR ---
RECEIVED IN PATIENT ROOM. RESTING IN BED WITH EYES OPEN. CALM AND COOPERATIVE WITH CARE AND ASSESSMENT. NO SIGNS OF AGGRESSION. REDIRECT AND REORIENT NEEDED. RESTING IN BED WITH EYES CLOSED AT THIS TIME. CONTINUE PLAN OF CARE.
[2018-06-20 22:09] VITALS: BP 120/60
[2018-06-21 07:24] VITALS: BP 92/60
--- NOTE | 2018-06-21 10:31 | NUR ---
RECEIVED PATIENT IN DINING ROOM FOR B'FAST, ALERT, CALM, COOPERATIVE, NO BEHAVIORAL ISSUES NOTED AT THIS TIME, CONT CONFUSION. MEDS ADMIN PER ORDERS WITH FULL MED COMPLIANCE NOTED. COOPERATIVE WITH GROUP AND STAFF REQUESTS, PARTICIPATING DIRECTED. CONT POC INCLUDING MEDS AND GROUP THERAPY DIRECTED.
--- NOTE | 2018-06-21 14:48 | PN ---
PATIENT:RAPHAEL DUENAS MEDICAL RECORD: [id number] LOCATION:[facility] ADMISSION DATE: 06/15/18 PROGRESS NOTE DATE OF SERVICE: 06/20/2018 SUBJECTIVE: The patient's case was discussed with staff. She has no new complaint. OBJECTIVE: The patient is in good behavioral control with limited insight about her condition. She tolerates her medicines well. ASSESSMENT: No change in diagnoses. PLAN: Current medicines and therapies have been reviewed. Long-term prognosis is guarded. TRANSINT:[id number] Voice Confirmation ID: [id number] DOCUMENT ID: [id number] ANTWAN ARZATE MD at 1448 CC: [id number] DICTATION DATE: 06/20/18 1623 FILLER SIFTER MACHINE: 06/21/18 0135 ADM IN [place] [id number] [place] [address]
[2018-06-21 20:00] VITALS: BP 120/63
--- NOTE | 2018-06-22 04:59 | NUR ---
B) Patient is alert and oriented to person and place, calm and cooperative , pleasant toward staff, I) Administered scheduled medications as ordered, assisted with needs, R) Mediation compliant, follows unit milieu, P) Continue plan of care.
[2018-06-22 08:10] VITALS: BP 107/63
--- NOTE | 2018-06-22 10:21 | NUR ---
RECEIVED PATIENT IN DING ROOM FOR B'FAST, ALERT, CALM, COOPERATIVE, QUITE CONFUSED. INSISTS THAT SHE IS DISCHARGING HOME TODAY. MEDS ADMIN PER ORDERS WITH COMPLETE MED COMPLIANCE NOTED. COOPERATIVE WITH GROUP AND STAFF REQUESTS. CONT POC INCLUDING MEDS AND GROUP THERAPY DIRECTED.
[2018-06-22 20:08] VITALS: BP 128/62
--- NOTE | 2018-06-23 02:25 | NUR ---
B) Patient is alert and oriented to person and palce and time, calm and cooperative, pleasant and social with staff and peers, I) Administered scheduled medications as ordered R) Mediations compliant, friendly and quiet, P) Continue plan of care.
[2018-06-23 08:01] VITALS: BP 116/68
--- NOTE | 2018-06-23 12:56 | PN ---
PATIENT:RAPHAEL DUENAS MEDICAL RECORD: [id number] LOCATION:[facility] ADMISSION DATE: 06/15/18 PROGRESS NOTE DATE OF SERVICE: 06/22/2018 SUBJECTIVE: The patient's case was discussed with staff. She has no new complaint. OBJECTIVE: The patient is in good behavioral control, but has limited insight about her condition. ASSESSMENT: No change in diagnoses. PLAN: Current medicines have been reviewed and will be maintained. I am going to start her on a low dose of Haldol, which was quite effective as a mood stabilizer previously. TRANSINT:[id number] Voice Confirmation ID: [id number] DOCUMENT ID: [id number] ANTWAN ARZATE MD at 1256 CC: [id number] DICTATION DATE: 06/22/18 165 BLOOD BANK TECHNICIAN: 06/22/18 2328 ADM IN [facility] [address] [id number]
--- NOTE | 2018-06-23 12:56 | PN ---
PATIENT:RAPHAEL DUENAS MEDICAL RECORD: [id number] LOCATION:[facility] [address] ADMISSION DATE: 06/15/18 PROGRESS NOTE DATE OF SERVICE: 06/21/2018 SUBJECTIVE: The patient's case was discussed with staff. She has no new complaint. OBJECTIVE: The patient is in good behavioral control with limited insight about her condition. She tolerates her medicines well. ASSESSMENT: No change in diagnoses. PLAN: Current medicines have been reviewed and will be maintained. Long-term prognosis is guarded. TRANSINT:[id number] Voice Confirmation ID: [id number] DOCUMENT ID: [id number] ANTWAN ARZATE MD at 1256 CC: [id number] DICTATION DATE: 06/21/18 1513 HAND IRONER: 06/21/182 ADM IN [place] [address] [place] [address]
--- NOTE | 2018-06-23 21:48 | NUR ---
PATIENT IS QUIET STAYS TO HERSELF, MAKES NEEDS KNOWN, MAKES FAIR EYE CONTACT, SMILES OCCASSIONALLY, COMPLIANT WITH MEDS, NO ADVERSE REACTION NOTED.
[2018-06-24 04:45] VITALS: BP 149/76
--- NOTE | 2018-06-24 07:45 | NUR ---
REC'D PT IN HALLWAY WITH PEERS. ALERT WITH CONFUSION NOTED. CALM AND COOPERATIVE WITH ASSESSMENT. NO AGGRESSION NOTED. REDIRECT AND REORIENT NEEDED. FALL PRECAUTIONS IN PLACE. WILL CONTINUE TO MONITOR Q 15 MINUTES FOR SAFETY. WILL CPOC.
[2018-06-24 08:18] VITALS: BP 124/74
--- NOTE | 2018-06-24 12:21 | PN ---
PATIENT:RAPHAEL DUENAS MEDICAL RECORD: [id number] LOCATION:[facility] [address] ADMISSION DATE: 06/15/18 PROGRESS NOTE DATE OF SERVICE: 06/23/2018 SUBJECTIVE: The patient's case was discussed with staff. She has no new complaint. OBJECTIVE: The patient denies intent to harm herself or others. She is tolerating her medicines well. Eye contact is fair. ASSESSMENT: No change in diagnoses. PLAN: Current medicines and therapies have been reviewed, both will be maintained. Long-term prognosis is guarded. TRANSINT:[id number] Voice Confirmation ID: [id number] DOCUMENT ID: [id number] ANTWAN ARZATE MD at 1221 CC: [id number] DICTATION DATE: 06/23/18 1349 MODULAR SET CREW MEMBER: 06/23/18 1441 ADM IN [facility] [address] [id number]
[2018-06-24 21:16] VITALS: BP 131/83
--- NOTE | 2018-06-24 22:43 | NUR ---
PATIENT IS QUIET, STAYS TO HERSELF, MAKES NEEDS KNOWN, COMPLIANT WITH MEDS, NO ADVERSE REACTION NOTED
[2018-06-25 08:00] VITALS: BP 100/73
--- NOTE | 2018-06-25 10:00 | NUR ---
ALERT AND ORIENTED WITH CONFUSION NOTED. CALM AND COOPERATIVE WITH CARE AND ASSESSMENT. COMPLIANT WITH MEDICATIONS, REDIRECT AND REORIENT NEEDED. WILL CONTINUE WITH PLAN OF CARE.
--- NOTE | 2018-06-25 12:00 | NUR ---
DISCHARGE PAPERWORK COMPLETED. LEFT WITH FAMILY AFTER THEIT MEETING WITH DIRECTOR OF GOLF AND STAFF NURSE, FLAVIO Aden RN
--- NOTE | 2018-06-25 16:05 | PN ---
PATIENT:RAPHAEL DUENAS MEDICAL RECORD: [id number] LOCATION:[facility] [address] ADMISSION DATE: 06/15/18 PROGRESS NOTE DATE OF SERVICE: 06/24/2018 SUBJECTIVE: The patient's case was discussed with staff. She has no new complaint. OBJECTIVE: The patient is in good behavioral control with limited insight about her condition. She tolerates her medicines well. She is denying any thoughts of harming herself or others. ASSESSMENT: No change in diagnoses. PLAN: The patient will be transitioned out of the hospital tomorrow. Long-term prognosis is guarded. TRANSINT:[id number] Voice Confirmation ID: [id number] DOCUMENT ID: [id number] ANTWAN ARZATE MD at 1605 CC: [id number] DICTATION DATE: 06/24/18 1243 DAUB COLOR MIXER: 06/24/18 1252 ADM IN [place] [id number] [place] [id number]
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
== END 2018-06-25 12:00 | disposition home or self-care (01) | DRG 885 ==
LOC: D.ER 14:29 → D.PSYCH 19:45
PROVIDERS: Family Medicine; ADMIT Psychiatry & Neurology Psychiatry
DX: F31.9 Bipolar disorder, unspecified (principal); E87.1 Hypo-osmolality and hyponatremia; I10 Essential (primary) hypertension; E03.9 Hypothyroidism, unspecified; E11.649 Type 2 diabetes mellitus with hypoglycemia without coma; E87.6 Hypokalemia; E78.5 Hyperlipidemia, unspecified; J30.9 Allergic rhinitis, unspecified; K21.9 Gastro-esophageal reflux disease without esophagitis; K59.00 Constipation, unspecified; G47.33 Obstructive sleep apnea (adult) (pediatric); E53.8 Deficiency of other specified B group vitamins

== ENCOUNTER 2019-03-08 09:00 | Outpatient (CLI) | payer MEDICARE, BC ==
[2018-06-18 10:31] VITALS: BMI 27.5
[~2019-03-08 09:00] MED LIST changes: +DESERYL PO; +EFFEXOR50 MG PO
== END 2019-03-08 10:00 | disposition home or self-care (01) ==
LOC: D.MAMMO 09:00
PROVIDERS: ATTEND Emergency Medicine
DX: Z12.31 Encounter for screening mammogram for malignant neoplasm of breast (principal)

== ENCOUNTER 2020-09-24 13:11 | Inpatient (IN) | payer MEDICARE, BC ==
[~2020-09-24] VITALS: Ht 162.6 cm; Wt 87.4 kg
--- NOTE | 2020-09-24 13:13 | NUR ---
URINE SPEC COLLECTED, LABELED AT BS AND SENT TO LAB
[2020-09-24 13:34] LABS: UDS - AMPHET NEGATIVE QUAL (NEGATIVE); UDS - BARB NEGATIVE QUAL (NEGATIVE); UDS - BENZO NEGATIVE QUAL (NEGATIVE); UDS - COCAINE NEGATIVE QUAL (NEGATIVE); UDS - OPIATE NEGATIVE QUAL (NEGATIVE); UDS - PCP NEGATIVE QUAL (NEGATIVE); UDS - THC NEGATIVE QUAL (NEGATIVE)
[2020-09-24 13:38] LABS: ANION GAP 17.9 mmol/L (8-16); CALCIUM 9.6 mg/dL (8.5-10.1); CARBON DIOXIDE 19.3 mmol/L (21.0-32.0); CREATININE - SERUM 0.9 mg/dL (0.6-1.3); POTASSIUM - SERUM 4.2 mmol/L (3.5-5.1)
[2020-09-24 13:46] LABS: BASOPHILS 1.2 % (0-2); EOSINOPHILS 0.2 % (0-7); HEMATOCRIT 41.7 % (36.0-48.0); HEMOGLOBIN 14.2 g/dL (12-16); LYMPHOCYTES 25.2 % (15-50); MCH 31.6 pg (26.0-34.0); MCHC 34.1 g/dL (31.0-37.0); MCV 92.8 fL (80.0-100.0); MEAN PLATELET VOLUME 9.1 fL (7.4-10.4); MONOCYTES 11.6 % (2-11); NEUTROPHILS 61.8 % (40-80); PLATELET COUNT 234 10x3/uL (130-400); RDW 12.9 % (11.5-14.5); WBC 8.4 10x3/uL (4.8-10.8)
[2020-09-24 13:52] LABS: ALBUMIN 3.9 g/dL (3.4-5.0); BILIRUBIN - TOTAL 0.36 mg/dL (0.2-1.3); MAGNESIUM - SERUM 1.7 mg/dL (1.8-2.4); PROTEIN - SERUM 7.8 g/dL (6.4-8.2); THYROID STIMULATING HORMONE 1.09 uIU/mL (0.36-3.74)
[2020-09-24 14:05] LABS: BILIRUBIN NEGATIVE (NEGATIVE); KETONE SMALL mg/dL (NEGATIVE); NITRITE NEGATIVE (NEGATIVE); SQUAMOUS EPITHELIAL 0-5 HPF (0-4); UROBILINOGEN 4 mg/dL (< 2); WHITE CELLS - URINE 0-5 HPF (0-4)
--- NOTE | 2020-09-24 14:10 | NUR ---
CALLED [facility] FOR MH ASSESSMENT
--- NOTE | 2020-09-24 15:00 | NUR ---
KELLE BLEDSOE AT FOR MH SCREENING
--- NOTE | 2020-09-24 15:10 | NUR ---
TO ED #21. PLACED IN SECURE ROOM, ALL BELONGINGS REMOVED AND SECURED. PT PLACED IN ROOM WITH CONTINUOUS/DIRECT OBS
[2020-09-24] MEDS ORDERED: DEPAKOTE500 MG (16:34)
--- NOTE | 2020-09-24 16:45 | NUR ---
PT C/O BEING VERY ANXIOUS ALL DAY, PACING AND SHAKING. ATIVAN 0.5 MG PO GIVEN FOR ANXIETY. FIRST DOSE OF MACROBID GIVEN AT THIS TIME. PT TOLERATED WELL.
[2020-09-24 17:08] VITALS: BP 166/77; BMI 32.7
[2020-09-24 18:00] LABS: CHOL - HDL RATIO 2.3 ratio (2.3-4.1); LDL-HDL RATIO 0.9 ratio (1.5-3.5)
[2020-09-24 18:17] LABS: SARS-CoV-2 ANTIGEN NEGATIVE- SARS-COV-2 (NEGATIVE)
--- NOTE | 2020-09-24 18:37 | NUR ---
PT ADMITTED FROM [facility] ED FOR SUICIDAL IDEATION TO . PT CALLED EMS TO COME TO THE HOSPITAL FOR A EVAL DUE TO THINKING ABOUT SHOOTING SELF IN ORDER TO GET HELP. PT STATES SHE IS BIPOLAR AND IS VERY ANXIOUS. PATIENT DENIES SI AT THIS TIME. STATED SHE WANTED TO SHOOT HERSELF IN HER LEG TO GET SOME HELP. PLESANT AND CALM WITH ADMISSION ASSESSMENTS. PT SIGNED CONSENTS AT THIS TIME. PT IS A FULL CODE. PASSCODE GIVEN TO THE DAUGHTER AT THIS TIME. NURSE WENT OVER HANDBOOK AND PAPERWORK.
[2020-09-24 20:00] VITALS: BP 143/88
--- NOTE | 2020-09-24 21:57 | NUR ---
ATIVAN GIVEN PO FOR ANXIETY, ABLE TO MAKE HER NEEDS AND CONCERNS KNOWN, WILL MONITOR FOR EFFECTIVENESS.
--- NOTE | 2020-09-25 02:57 | NUR ---
PATIENT GIVEN ATIVAN 0.5 MG PO FOR ANXIETY AT 02:28.
[2020-09-25 08:04] VITALS: BP 146/95
[2020-09-25 11:32] VITALS: BP 146/95
[2020-09-25 12:58] VITALS: Ht 162.6 cm; Wt 87.4 kg
--- NOTE | 2020-09-25 15:18 | NUR ---
Rec'd patient this am ambulatory about unit. She is A/O to person this morning. She is med compliant and takes meds whole. She request an Ativan PO this morning and said that her "nerves" were bad. Ativan 1PO given.She has denied any spoken or observed suicidal ideations or harm. She is able to verbalize her needs. She participated in group therapy this morning.
--- NOTE | 2020-09-25 16:00 | NUR ---
pt c/o of her nerves were bad and she was nervous about being here. Ativan 0.5 mg po administered per PRN order. will reassess for effectiveness.
[2020-09-25 20:00] VITALS: BP 157/93
--- NOTE | 2020-09-26 | NUR ---
RECEIVED PATIENT IN THE DAYROOM SITTING QUIETLY WITH THE OTHER PATIENTS, SHE IS NERVOUS BUT SEEMS TO HANDLE THINGS WELL REGARDLESS. COMPLIANT WITH MEDS, SHE LETS HER NEEDS AND CONCERNS BE KNOWN. WILL FOLLOW POC
[2020-09-26 10:36] VITALS: BP 114/84
--- NOTE | 2020-09-26 17:53 | NUR ---
ALERT, CALM, COOPERATIVE, VERY PLEASANT. MEDS ADMIN PER ORDERS WITH COMPLETE MED COMPLIANCE NOTED. NO ADVERSE REACTION TO MEDS. NO SUICIDAL IDEATIONS NOTED. CONTINUE PLAN OF CARE.
[2020-09-26 20:00] VITALS: BP 100/47
--- NOTE | 2020-09-27 01:00 | NUR ---
RECEIVED PATIENT IN HER ROOM, SHE LIKES TO STAY TO HERSELF AT TIMES, SHE SEEMS TO HANDLE HER ANXIETY WELL. COMPLIANT WITH MEDS, NO ADVERSE REACTION NOTED TO MEDS. WILL FOLLOW POC
[2020-09-27 07:30] VITALS: BP 110/71
--- NOTE | 2020-09-27 17:46 | NUR ---
Alert, calm, cooperative, pleasant. Meds admin per orders with complete med compliance noted. No adverse reaction to meds. Denies suicidal ideations. Continjue plan of care, monitoring for S.I.
[2020-09-27 23:36] VITALS: BP 112/49
--- NOTE | 2020-09-27 23:50 | NUR ---
RECEIVED IN HALLWAY OUTSIDE OF NURSES STATION. CALM AND COOPERATIVE WITH CARE AND ASSESSMENT. NO STATEMENTS OF SELF HARM VOICED. ENCOURAGE TO EXPRESS NEEDS. RESTING IN BED WITH EYES CLOSED AT THIS TIME. CONTINUE PLAN OF CARE.
[2020-09-28 07:30] VITALS: BP 117/77
--- NOTE | 2020-09-28 12:15 | NUR ---
RECEIVED IN HALLWAY OUTSIDE OF NURSES STATION. SOCIALIZING. CALM AND COOPERATIVE WITH CARE AND ASSESSMENT. DENIES SUICIDAL IDEATION. STATES SHE IS FEELING BETTER. REDIRECT AND REORIENT NEEDED. EATING LUNCH AT THIS TIME. CONTINUE PLAN OF CARE.
--- NOTE | 2020-09-28 20:17 | NUR ---
RECEIVED IN HALLWAY SITTING WITH PEERS AT HER SIDE. SOCIAL. CALM AND COOPERATIVE WITH CARE AND ASSESSMENT. NO STATEMENTS OF SELF HARM VOICED. ENCOURAGE TO EXPRESS NEEDS. CONTINUES TO SIT CALMLY IN HALLWAY. CONTINUE PLAN OF CARE.
[2020-09-28 23:05] VITALS: BP 110/75
[2020-09-29 08:00] VITALS: BP 105/69
--- NOTE | 2020-09-29 14:28 | NUR ---
REC'D PT IN HALLWAY SOCIALIZING WITH PEERS. AWAKE AND ALERT X2. ASSESSMENT COMPLETED AT THIS TIME. PRESCRIBED MEDICATIONS PROVIDED ORDERED. MED COMPLIANT. PATIENT DENIES SI AT THIS TIME. PATIENT IS CALM AND COOPERATIVE AND PARTICIPATING IN GROUPS TODAY. PATIENT STATES" THAT SHE DOES STRUGGLE WITH DEPRESSION." REDIRECT AND REORIENT NEEDED. FALL PRECAUTIONS IN PLACE FOR SAFETY. WILL CPOC.
--- NOTE | 2020-09-29 21:38 | NUR ---
RECEIVED IN HALLWAY. SITTING IN A CHAIR WITH PEERS AT HER SIDE. SOCIAL. CALM AND COOPERATIVE WITH CARE AND ASSESSMENT. NO STATEMENTS OF SELF HARM VOICED. ENCOURAGE TO EXPRESS NEEDS. RESTING QUIETLY IN BED AT THIS TIME. CONTINUE PLAN OF CARE.
[2020-09-29 21:41] VITALS: BP 123/75
--- NOTE | 2020-09-30 05:35 | NUR ---
FSBS 68. ORANGE JUICE GIVEN.
[2020-09-30 08:00] VITALS: BP 103/69
--- NOTE | 2020-09-30 12:46 | PN ---
PATIENT:RAPHAEL DUENAS MEDICAL RECORD: [id number] LOCATION:[facility] ADMISSION DATE: 09/24/20 PROGRESS NOTE DATE OF SERVICE: 09/29/2020 SUBJECTIVE: The patient's case was discussed with staff. She has no new complaint. OBJECTIVE: The patient is in good behavioral control. She has poor insight about her situation. ASSESSMENT: 1. Dementia. 2. Major depression. PLAN: The patient has no thoughts of harming herself or others. She is in good behavioral control and will be maintained on current medicines. TRANSINT:[id number] Voice Confirmation ID: [id number] DOCUMENT ID: [id number] ANTWAN ARZATE MD at 1246 CC: [id number] DICTATION DATE: 09/29/20 172 MINER HELPER: 09/29/20 204 ADM IN [id number] [place] [address]
--- NOTE | 2020-09-30 15:11 | NUR ---
Rec'd patient this am ambulatory about the unit. She is a/o to person, place, and situation. She is calm,pleasant, and cooperative. She likes to sit and watch the other patients. She denies any suicide ideations or self harm. She sit and participated in group/activities today. She is directable and redirectable.She had a PRN Tylenol 650mg this am for leg/joint pain all over. Pain med effective.
--- NOTE | 2020-09-30 16:33 | NUR ---
Nutrition Re-Assessment Diet: Diabetic PO intake: 100% x last 9 meals Last BM: 09/25/20 Wt: 189.4# (09/27/20); Admit Wt: 185# (09/24/20) Meds noted: linzess, SSI, glipizide Labs noted: POC Glu 69(L) Patient remains at low nutrition risk at this time. Please consult dietitian if further MNT is medically indicated and/or desired by MD. RD will continue to monitor for nutrition risk factors DHS. RD will re-assess within 7 days.
[2020-09-30 20:00] VITALS: BP 113/72
--- NOTE | 2020-10-01 03:19 | NUR ---
B)RECEIVED PATIENT SITTING OUTSIDE THE NURSE'S STATION. ALERT AND ORIENTED. SITS WITH PEERS HOWEVER IS WITHDRAWN. APPROPRIATE WHEN APPROACHED BY STAFF. RELATES HAS NOT HAD A BOWEL MOVEMENT IN SEVERAL DAYS. PRUNE JUICE COCKTAIL PREPARED AND GIVEN TO PATIENT. I)ADMINISTER MEDS AND MONITOR COMPLIANCE. OBTAIN VERBAL NO HARM CONTRACT. R)MED COMPLIANT. CONTRACTS VERBALLY FOR NO SELF HARM. DENIES SI. P)CONTINUE POC AND PROVIDE SAFE ENVIRONMENT.
[2020-10-01 09:29] VITALS: BP 122/69
--- NOTE | 2020-10-01 15:11 | NUR ---
Rec'd this patient this am up ambulating in the hallway. She is w/o times 3 to person, place, and situation. She is med compliant and takes meds whold. she denies any suicidal ideations or self harm. She can be very withdrawn at times and will sat alone and watch the other patients. She is directable and redirectable.
--- NOTE | 2020-10-01 15:14 | PN ---
PATIENT:RAPHAEL DUENAS MEDICAL RECORD: [id number] LOCATION:[facility] ADMISSION DATE: 09/24/20 PROGRESS NOTE DATE OF SERVICE: 09/30/2020 SUBJECTIVE: The patient's case was discussed with staff. She has no new complaint. OBJECTIVE: The patient is in good behavioral control with poor insight about her situation, but she has no thoughts of harming herself. ASSESSMENT: 1. Dementia. 2. Major depression. PLAN: The patient will be maintained on current medications. I anticipate she can be transitioned out of the hospital soon if this level of improvement continues. TRANSINT:[id number] Voice Confirmation ID: [id number] DOCUMENT ID: [id number] ANTWAN ARZATE MD at 1514 CC: [id number] DICTATION DATE: 09/30/20 1737 BRUSHER MACHINE: 10/01/[address] [facility] [address] [place] [address]
[2020-10-01] MEDS ORDERED: EFFEXOR37.5 MG PO (16:00)
[2020-10-01] MEDS ORDERED: VOLTAREN100 GM TOPICAL (16:00)
[2020-10-01] MEDS ORDERED: MIRALAX17 GM PO (16:01)
[2020-10-01] MEDS ORDERED: Mineral Oil PO (16:01)
[2020-10-01] MEDS ORDERED: FLUTICASONE PRO16 GM NASAL (16:01)
[2020-10-01 20:00] VITALS: BP 130/62
--- NOTE | 2020-10-02 01:29 | NUR ---
B)RECEIVED PATIENT SITTING OUTSIDE THE NURSE'S STATION. ALERT AND ORIENTED X4. INTERACTING MORE THIS EVENING WITH PEERS. CALM AND COOPERATIVE. I)ADMINISTER MEDS AND MONITOR COMPLIANCE. OBTAIN VERBAL NO HARM CONTRACT. R)MED COMPLIANT. CONTRACTS VERBALLY FOR NO SELF HARM. DENIES SI. P)CONTINUE POC AND PROVIDE SAFE ENVIRONMENT.
[2020-10-02 10:11] VITALS: BP 107/69
--- NOTE | 2020-10-02 11:42 | NUR ---
pt belongings brought from the E.D. all belongings accounted for.
--- NOTE | 2020-10-02 13:51 | NUR ---
Rec'd patient this am in hallway sitting in a chair. She is a/o to person, place, and situation, She denies any suicidal ideations or self harm. She is med compliant and takes her meds whole. She sat with the group this am but napped near. She is pleasant, calm, and cooperative with staff. She is directable and redirectable.
--- NOTE | 2020-10-02 15:50 | NUR ---
pt d/c home at this time. paperwork faxed to to facility and papercopy sent with pt at this time. all personal belongings sent with pt at this time. pt tolarated d/c well. no self harm thoughts noted.
--- NOTE | 2020-10-05 14:38 | PN ---
PATIENT:RAPHAEL DUENAS MEDICAL RECORD: [id number] LOCATION:[facility] ADMISSION DATE: 09/24/20 PROGRESS NOTE DATE OF SERVICE: 10/01/2020 SUBJECTIVE: The patient's case was discussed with staff. She has no new complaint. OBJECTIVE: The patient is in good behavioral control with limited insight about her condition. She is tolerating her medicines well. ASSESSMENT: Major depression. PLAN: Current medicines have been reviewed and will be maintained. The patient has no evidence of acute or direct dangerousness and will be transitioned out of the hospital tomorrow with followup being arranged. TRANSINT:[id number] Voice Confirmation ID: [id number] DOCUMENT ID: [id number] ANTWAN ARZATE MD at 1438 CC: [id number] DICTATION DATE: 10/01/20 1555 ANNUAL GIVING DIRECTOR: 10/01/20 2223 DIS IN 10/02/20 [id number] [place] [address]
== END 2020-10-02 15:50 | disposition home or self-care (01) | DRG 885 ==
LOC: D.ER 13:11 → D.PSYCH 16:15
PROVIDERS: Emergency Medicine; ADMIT Psychiatry & Neurology Psychiatry; ATTEND Psychiatry & Neurology Psychiatry
DX: F33.2 Major depressive disorder, recurrent severe without psychotic features (principal); R45.851 Suicidal ideations; N39.0 Urinary tract infection, site not specified; I10 Essential (primary) hypertension; E78.5 Hyperlipidemia, unspecified; J30.1 Allergic rhinitis due to pollen; E11.9 Type 2 diabetes mellitus without complications; K21.9 Gastro-esophageal reflux disease without esophagitis; E03.9 Hypothyroidism, unspecified; K59.09 Other constipation